=== PATIENT | male | born 1945 | race Caucasian/White ===

== ENCOUNTER 2018-05-29 00:39 | Inpatient (IN) | payer OTHER, MEDICARE ==
--- OUTSIDE RECORDS SUMMARY | 2018-05-29 00:40 | XMS REPORT | Clinical Summary ---
:1945 Author Organization [facility] [employer] Address [address] [place] [address] Care Team Providers Name Role Phone Asked, No Pcp Primary Care Provider Unavailable Allergies No Known Allergies Current Medications Prescription Sig. Disp. Refills Start Date End Date Status lisinopril Take 40 mg by Active (PRINIVIL,ZESTRIL) mouth daily. 40 MG tablet omeprazole Take 40 mg by Active (PriLOSEC) 40 MG mouth daily. capsule diltiazem TAKE 1 TABLET Active (CardIZEM) 120 MG ONCE DAILY tablet ELIQUIS 5 mg tablet Take 5 mg by 1 09/03/2016 Active mouth 2 (two) times a day. digOXIN (LANOXIN) Take 1 tablet 90 tablet 3 01/17/2018 Active 125 mcg tablet (125 mcg total) by mouth daily. digOXIN (LANOXIN) digoxin 125 07/05/2017 Discontinued 125 mcg tablet mcg tablet digOXIN (LANOXIN) Take 1 tablet 90 tablet 3 07/05/2017 07/09/2017 Discontinued 125 mcg tablet (125 mcg total) by mouth daily. digOXIN (LANOXIN) Take 1 tablet 90 tablet 3 07/09/2017 07/15/2017 Discontinued 125 mcg tablet (125 mcg total) by mouth daily. digOXIN (LANOXIN) Take 1 tablet 90 tablet 0 07/15/2017 01/13/2018 Discontinued 125 mcg tablet (125 mcg total) by mouth daily. digOXIN (LANOXIN) Take 1 tablet 30 tablet 0 01/13/2018 01/14/2018 Discontinued 125 mcg tablet (125 mcg total) by mouth daily. digOXIN (LANOXIN) Take 1 tablet 90 tablet 3 01/14/2018 01/14/2018 Discontinued 125 mcg tablet (125 mcg total) by mouth daily. digOXIN (LANOXIN) Take 1 tablet 90 tablet 3 01/14/2018 01/17/2018 Discontinued 125 mcg tablet (125 mcg total) by mouth daily. Active Problems Problem Noted Date Bilateral carotid artery stenosis 11/01/2016 AF (atrial fibrillation) 06/05/2016 Encounters Date Type Specialty Care Team Description 01/17/2018 Refill Cardiology Cathie Donaldson MA Med Refill 01/14/2018 Refill Cardiology Renetta Tian MA Med Refill 01/14/2018 Refill Cardiology Renetta Tian MA Med Refill 01/13/2018 Orders Only Cardiology Finn Moy MA 07/15/2017 Refill Cardiology Finn Moy MA Med Refill 07/09/2017 Refill Cardiology Renetta Tian MA Med Refill 07/05/2017 Refill Cardiology Renetta Tian MA Med Refill after 05/28/2017 Social History Tobacco Use Types Packs/Day Years Used Date Never Smoker Alcohol Use Drinks/Week oz/Week Comments No Sex Assigned at Date Recorded Not on file Last Filed Vital Signs Not on file Plan of Treatment Health Maintenance Due Date Last Done Comments COLON CANCER SCREENING 1995 SHINGRIX VACCINE (#1) 1995 ZOSTER VACCINE 2005 PNEUMOCOCCAL POLYSACCHARIDE VACCINE AGE 65 AND OVER 2010 PNEUMOCOCCAL-13 2010 INFLUENZA VACCINE 04/16/2018 Results Not on fileafter 05/28/2017 Insurance Payer Benefit Plan / Group Subscriber ID Type Phone Address [facility] AAR SUPPLEMENT xxxxxxxxxxx Commercial MEDICARE MEDICARE PART A AND B xxxxxxxxxx Medicare [place], [place]
[2018-05-29] MEDS ORDERED: ASPIRIN 81 MG CHEWABLE TABLET ONE ×2 (01:23→09:17)
[2018-05-29 01:26] LABS: Absolute Lymphocytes (CBC) 1.9 K/uL (0.7-4.9); Absolute Monocytes 1.1 K/uL (0.1-1.3); Absolute Neutrophil 8.4 K/uL (1.8-8.0); Basophils % 0.6 % (0-1.3); Eosinophils % 1.7 % (0-4.4); Hematocrit 34.1 % (39.6-49.0); Lymphocytes % 16.5 % (15.3-44.8); MCH 30.2 pg (27.0-35.0); MPV 8.5 fL (7.6-11.3); Monocytes % 9.1 % (3.3-12.3); RBC Red Blood Cell Count 3.84 M/uL (4.33-5.43)
[2018-05-29 01:30] LABS: Protime INR 1.52
[2018-05-29 01:47] LABS: ALT/SGPT 17 U/L (12-78); AST/SGOT 15 U/L (15-37); Albumin 3.7 g/dL (3.4-5.0); Alkaline Phosphatase 77 U/L (45-117); BUN Blood Urea Nitrogen 29 mg/dL (7-18); Bicarbonate 28 mmol/L (21-32); Bilirubin Direct 0.1 mg/dL (0-0.2); Bilirubin Total 0.3 mg/dL (0.2-1.0); CKMB Creatine Kinase MB < 1.0 ng/mL (0.3-3.6); Creatine Phosphokinase 45 U/L (39-308); Glucose Level 115 mg/dL (74-106); Magnesium 2.2 mg/dL (1.8-2.4); NT PRO-BNP 2243 pg/mL (<125); Potassium 5.4 mmol/L (3.5-5.1); Protein, Total 8.2 g/dL (6.4-8.2); Sodium Level 132 mmol/L (136-145); Troponin (Emerg Dept Use Only) 0.02 ng/mL (0.0-0.045)
[2018-05-29] MEDS ORDERED: SOD POLYSTYREN SUL 15 GM/60 ML UCUP ONE (02:11)
--- NOTE | 2018-05-29 03:17 | EDPHYS ---
Physician Documentation [facility] Name: Driss Dao Age: 73 yrs Sex: Male : 1945 Arrival Date: 05/29/2018 Time: 00:45 Bed 12 Private MD: ED Physician David Garland HPI: 05/29 02:08 This 73 yrs old Male presents to ER via EMS with complaints of chest pain. jr8 02:08 The patient or guardian reports chest pain that is located primarily in the substernal jr8 area. Onset: acutely, today. The pain radiates to the left arm, back. Associated signs and symptoms: The patient has no apparent associated signs or symptoms. The chest pain is described as a pressure. Duration: The patient or guardian reports multiple episodes. Modifying factors: The symptoms are alleviated by nothing. the symptoms are aggravated by nothing. Severity of pain: At its worst the pain was moderate in the emergency department the pain has resolved. The patient has not experienced similar symptoms in the past. The patient has not recently seen a physician. Has had intermittent chest pain for the past two days. Worse tonight. Woke him up in his sleep. Episodes last about 10 min a piece when they do occur . Historical: - Allergies: 00:52 No Known Allergies; jd3 - Home Meds: 00:52 lisinopril 40 mg Oral tab 1 tab once daily [Active]; omeprazole 40 mg Oral cpDR 1 cap jd3 once daily [Active]; Eliquis 2.5 mg Oral tab 1 tab 2 times per day [Active]; Aspirin Oral [Active]; 02:16 digoxin 125 mcg oral tab 1 tab once daily [Active]; diltiazem HCl 120 mg Oral cpER 1 jd3 cap once daily [Active]; - PMHx: 00:52 Atrial Fib; CVA - with right sided weakness; Hypertension; GI Bleed; jd3 - PSHx: 00:52 Heart stents; back sx; jd3 - Immunization history:: Adult Immunizations not up to date. - Social history:: Smoking status: Patient/guardian denies using tobacco, the patient reports quitting approximately 3 years ago. - Ebola Screening: : Patient negative for fever greater than or equal to 101.5 degrees Fahrenheit, and additional compatible Ebola Virus Disease symptoms. ROS: 02:08 Eyes: Negative for injury, pain, redness, and discharge, ENT: Negative for injury, jr8 pain, and discharge, Neck: Negative for injury, pain, and swelling, Respiratory: Negative for shortness of breath, cough, wheezing, and pleuritic chest pain, Abdomen/GI: Negative for abdominal pain, nausea, vomiting, diarrhea, and constipation, Back: Negative for injury and pain, MS/Extremity: Negative for injury and deformity, Skin: Negative for injury, rash, and discoloration, Neuro: Negative for headache, weakness, numbness, tingling, and seizure. 02:08 Cardiovascular: Positive for chest pain, Negative for edema, orthopnea, palpitations, paroxysmal nocturnal dyspnea. Exam: 02:08 Eyes: Pupils equal round and reactive to light, extra-ocular motions intact. Lids and jr8 lashes normal. Conjunctiva and sclera are non-icteric and not injected. Cornea within normal limits. Periorbital areas with no swelling, redness, or edema. ENT: Nares patent. No nasal discharge, no septal abnormalities noted. Tympanic membranes are normal and external auditory canals are clear. Oropharynx with no redness, swelling, or masses, exudates, or evidence of obstruction, uvula midline. Mucous membranes moist. Neck: Trachea midline, no thyromegaly or masses palpated, and no cervical lymphadenopathy. Supple, full range of motion without nuchal rigidity, or vertebral point tenderness. No Meningismus. Cardiovascular: Regular rate and rhythm with a normal S1 and S2. No gallops, murmurs, or rubs. Normal PMI, no JVD. No pulse deficits. Respiratory: Lungs have equal breath sounds bilaterally, clear to auscultation and percussion. No rales, rhonchi or wheezes noted. No increased work of breathing, no retractions or nasal flaring. Abdomen/GI: Soft, non-tender, with normal bowel sounds. No distension or tympany. No guarding or rebound. No evidence of tenderness throughout. Back: No spinal tenderness. No costovertebral tenderness. Full range of motion. Skin: Warm, dry with normal turgor. Normal color with no rashes, no lesions, and no evidence of cellulitis. MS/ Extremity: Pulses equal, no cyanosis. Neurovascular intact. Full, normal range of motion. Neuro: Awake and alert, GCS 15, oriented to person, place, time, and situation. Cranial nerves II-XII grossly intact. Motor strength 5/5 in all extremities. Sensory grossly intact. Cerebellar exam normal. Normal gait. Vital Signs: 00:52 BP 128 / 55; Pulse 45; Resp 18 S; Temp 98.7(O); Pulse Ox 98% on R/A; Weight 79.38 kg jd3 (R); Height 6 ft. 0 in. (182.88 cm) (R); Pain 0/10; 01:42 BP 97 / 56; Pulse 51; Resp 17 S; Pulse Ox 99% on R/A; Pain 0/10; jd3 02:39 BP 110 / 51; Pulse 60; Resp 17 S; Pulse Ox 100% on R/A; jd3 03:30 BP 103 / 50; Pulse 59; Resp 17; Pulse Ox 100% on R/A; lp1 00:52 Body Mass Index 23.73 (79.38 kg, 182.88 cm) jd3 MDM: 00:51 Patient medically screened. jr8 02:08 The patient was given aspirin in the Emergency Department. Data reviewed: vital signs, jr8 nurses notes, lab test result(s), EKG, radiologic studies, CT scan, plain films, and as a result, I will admit patient. Data interpreted: Pulse oximetry: on room air is 99 %. Interpretation: normal. Counseling: I had a detailed discussion with the patient and/or guardian regarding: the historical points, exam findings, and any diagnostic results supporting the discharge/admit diagnosis, lab results, radiology results, the need for further work-up and treatment in the hospital. 03:41 ED course: Called and left message for Dr. Escobar about admission. No answer at that jr8 time. Awaiting call back . 05/29 00:59 Order name: Basic Metabolic Panel; Complete Time: : 05/29 00:59 Order name: CBC with Diff; Complete Time: : 05/29 00:59 Order name: Ckmb; Complete Time: : 05/29 00:59 Order name: CPK; Complete Time: : 05/29 00:59 Order name: LFT's; Complete Time: : [facility] 05/29 00:59 Order name: Magnesium; Complete Time: : 05/29 00:59 Order name: NT PRO-BNP; Complete Time: 01:55 [facility] 05/29 00:59 Order name: PT-INR; Complete Time: 01:55 [facility] 05/29 00:59 Order name: Ptt, Activated; Complete Time: 01:55 [facility] 05/29 00:59 Order name: Troponin (emerg Dept Use Only); Complete Time: 01:55 [facility] 05/29 01:56 Order name: Digoxin rust 05/29 01:56 Order name: Digoxin Level; Complete Time: 03:16 EDMS 05/29 03:27 Order name: Urine Dipstick--Ancillary (enter results); Complete Time: 15:25 [place] 05/29 05:41 Order name: Troponin I; Complete Time: 15:25 [facility] 05/29 00:59 Order name: XRAY Chest (1 view); Complete Time: 15:25 [facility] 05/29 00:59 Order name: EKG; Complete Time: 01:00 [facility] 05/29 00:59 Order name: Cardiac monitoring; Complete Time: 01:00 [facility] 05/29 00:59 Order name: EKG - Nurse/Tech; Complete Time: 00:59 [facility] 05/29 00:59 Order name: IV Saline Lock; Complete Time: 01:10 [facility] 05/29 00:59 Order name: Labs collected and sent; Complete Time: 01:10 [facility] 05/29 00:59 Order name: O2 Per Protocol; Complete Time: 01:00 [facility] 05/29 00:59 Order name: O2 Sat Monitoring; Complete Time: 01:00 [facility] 05/29 00:59 Order name: Urine Dipstick-Ancillary (obtain specimen); Complete Time: 03:24 [facility] 05/29 01:57 Order name: CT Chest W/ Con; Complete Time: 15:25 rust 05/29 11:06 Order name: Troponin I; Complete Time: 15:25 EDMS Administered Medications: 01:19 Drug: Aspirin Chewable Tablet 243 mg Route: PO; jd3 02:03 Follow up: Response: No adverse reaction jd3 02:10 Drug: Kayexalate 30 grams Route: PO; jd3 03:23 Follow up: Response: No adverse reaction lp1 Disposition: 05/29/18 03:16 Hospitalization ordered by Blade Escobar for Inpatient Admission. Preliminary diagnosis are Chest pain, unspecified, Pulmonary Mass. - Bed requested for [facility] ER HOLD. - Status is Inpatient Admission. eb - Condition is Stable. - Problem is new. - Symptoms have improved. UTI on Admission? No Addendum: 05/30/2018 13:41 Co-signature as Attending Physician, David Garland MD I agree with the assessment and c tesfaye plan of care. Signatures: Dispatcher [employer] EDMS Rachel Denny RN RN mw Anderson, Corey, MD MD cha Pena, Laura RN RN lp1 Indio Box PA PA jr8 Everett Orlando RN RN jd3 Jeniffer Funk Corrections: (The following items were deleted from the chart) 05/29 02:16 00:52 Home Meds: digoxin 250 mcg Oral tab 1 tab once daily; jd3 jd3 02:16 00:52 Home Meds: Cardizem Oral; jd3 jd3 03:56 03:16 Hospitalization Ordered by Blade Escobar MD for Inpatient Admission. Preliminary diagnosis is Chest pain, unspecified. Bed requested for Telemetry/MedSurg (Inpatient). Status is Inpatient Admission. Condition is Stable. Problem is new. Symptoms have improved. UTI on Admission? No. jr8 03:59 03:56 05/29/2018 03:16 Hospitalization Ordered by Blade Escobar MD for Inpatient jr8 Admission. Preliminary diagnosis is Chest pain, unspecified. Bed requested for [facility] ER HOLD. Status is Inpatient Admission. Condition is Stable. Problem is new. Symptoms have improved. UTI on Admission? No. mw 11:49 03:59 05/29/2018 03:16 Hospitalization Ordered by Blade Escobar MD for Inpatient eb Admission. Preliminary diagnosis is Chest pain, unspecified; Pulmonary Mass. Bed requested for [facility] ER HOLD. Status is Inpatient Admission. Condition is Stable. Problem is new. Symptoms have improved. UTI on Admission? No. jr8
--- NOTE | 2018-05-29 03:17 | ER ---
Nurse's Notes [facility] Name: Driss Dao Age: 73 yrs Sex: Male : 1945 Arrival Date: 05/29/2018 Time: 00:45 Bed 12 Private MD: Diagnosis: Chest pain, unspecified;Pulmonary Mass Presentation: 05/29 00:45 Presenting complaint: EMS states: "He was having chest pain that radiated to his back jd3 and left shoulder, around 1930 today. He also said that he was having some numbness and tingling in his figures. all symptoms resolved in route.". Transition of care: patient was not received from another setting of care. Onset of symptoms was May 29, 2018. Risk Assessment: Do you want to hurt yourself or someone else? Patient reports no desire to harm self or others. Initial Sepsis Screen: Does the patient meet any 2 criteria? No. Patient's initial sepsis screen is negative. Does the patient have a suspected source of infection? No. Patient's initial sepsis screen is negative. Care prior to arrival: None. 00:45 Method Of Arrival: EMS: [facility] jd3 00:45 Acuity: ANGEL 2 jd3 Historical: - Allergies: 00:52 No Known Allergies; jd3 - Home Meds: 00:52 lisinopril 40 mg Oral tab 1 tab once daily [Active]; omeprazole 40 mg Oral cpDR 1 cap jd3 once daily [Active]; Eliquis 2.5 mg Oral tab 1 tab 2 times per day [Active]; Aspirin Oral [Active]; 02:16 digoxin 125 mcg oral tab 1 tab once daily [Active]; diltiazem HCl 120 mg Oral cpER 1 jd3 cap once daily [Active]; - PMHx: 00:52 Atrial Fib; CVA - with right sided weakness; Hypertension; GI Bleed; jd3 - PSHx: 00:52 Heart stents; back sx; jd3 - Immunization history:: Adult Immunizations not up to date. - Social history:: Smoking status: Patient/guardian denies using tobacco, the patient reports quitting approximately 3 years ago. - Ebola Screening: : Patient negative for fever greater than or equal to 101.5 degrees Fahrenheit, and additional compatible Ebola Virus Disease symptoms. Screenin:54 Abuse screen: Denies threats or abuse. Nutritional screening: No deficits noted. jd3 Tuberculosis screening: No symptoms or risk factors identified. Fall Risk Ambulatory Aid- Crutches/Cane/Walker (15 pts). Gait- Weak (10 pts.). Mental Status- Oriented to own ability (0 pts). Total Selby Fall Scale indicates Low Risk Score (25-44 pts). Fall prevention measures have been instituted. Side Rails Up X 2 Placed close to Nursing Station Frequent Obs/Assesments occuring Family Present and informed to notify staff if they need to leave bedside. Assessment: 00:53 General: Appears comfortable, Behavior is calm, cooperative, appropriate for age. Pain: jd3 Denies pain. Neuro: Level of Consciousness is awake, alert, obeys commands, Oriented to person, place, time, situation. Cardiovascular: Heart tones S1 S2 present Capillary refill < 3 seconds Patient's skin is warm and dry. Rhythm is atrial fibrillation. Respiratory: Airway is patent Respiratory effort is even, unlabored, Respiratory pattern is regular, symmetrical, Breath sounds are clear bilaterally. GI: No signs and/or symptoms were reported involving the gastrointestinal system. : No signs and/or symptoms were reported regarding the genitourinary system. EENT: No signs and/or symptoms were reported regarding the EENT system. Derm: Skin is intact, Skin is dry, Skin is normal, Skin temperature is warm. Musculoskeletal: Circulation, motion, and sensation intact. Range of motion: intact in all extremities. 01:43 Reassessment: Patient appears in no apparent distress at this time. No changes from jd3 previously documented assessment. Patient and/or family updated on plan of care and expected duration. Pain level reassessed. Patient is alert, oriented x 3, equal unlabored respirations, skin warm/dry/pink. 02:38 Reassessment: Patient appears in no apparent distress at this time. No changes from jd3 previously documented assessment. Patient and/or family updated on plan of care and expected duration. Pain level reassessed. Patient is alert, oriented x 3, equal unlabored respirations, skin warm/dry/pink. 03:45 Reassessment: Patient is alert, oriented x 3, equal unlabored respirations, skin lp1 warm/dry/pink. Patient aware of pending admission. Vital Signs: 00:52 BP 128 / 55; Pulse 45; Resp 18 S; Temp 98.7(O); Pulse Ox 98% on R/A; Weight 79.38 kg jd3 (R); Height 6 ft. 0 in. (182.88 cm) (R); Pain 0/10; 01:42 BP 97 / 56; Pulse 51; Resp 17 S; Pulse Ox 99% on R/A; Pain 0/10; jd3 02:39 BP 110 / 51; Pulse 60; Resp 17 S; Pulse Ox 100% on R/A; jd3 03:30 BP 103 / 50; Pulse 59; Resp 17; Pulse Ox 100% on R/A; lp1 00:52 Body Mass Index 23.73 (79.38 kg, 182.88 cm) jd3 ED Course: 00:45 Patient arrived in ED. jd3 00:49 Triage completed. jd3 00:51 Indio Box PA is PHCP. jr8 00:51 David Garland MD is Attending Physician. jr8 00:53 Arm band placed on. jd3 00:55 Patient has correct armband on for positive identification. Placed in gown. Bed in low jd3 position. Call light in reach. Side rails up X2. Adult w/ patient. monitor car operator on. Pulse ox on. NIBP on. 00:59 Everett Orlando, RN is Primary Nurse. jd3 01:10 Inserted saline lock: 20 gauge in left antecubital area, using aseptic technique. Blood jd3 collected. 01:55 XRAY Chest (1 view) In Process Unspecified. EDMS 02:53 CT Chest W/ Con In Process Unspecified. EDMS 03:16 Blade Escobar MD is Hospitalizing Provider. jr8 03:24 No provider procedures requiring assistance completed. Patient admitted, IV remains in lp1 place. Administered Medications: 01:19 Drug: Aspirin Chewable Tablet 243 mg Route: PO; jd3 02:03 Follow up: Response: No adverse reaction jd3 02:10 Drug: Kayexalate 30 grams Route: PO; jd3 03:23 Follow up: Response: No adverse reaction lp1 Outcome: 03:16 Decision to Hospitalize by Provider. jr8 03:24 Condition: stable lp1 03:24 Instructed on the need for admit. 04:28 Admitted to ER Hold. Please see [facility] for further documentation. lp1 11:49 Patient left the ED. eb Signatures: Dispatcher [employer] EDTammy Hare RN RN lp1 Indio Box PA PA jr8 Everett Orlando RN RN jd3 Jeniffer Funk Corrections: (The following items were deleted from the chart) 02:16 00:52 Home Meds: digoxin 250 mcg Oral tab 1 tab once daily; jd3 jd3 02:16 00:52 Home Meds: Cardizem Oral; jd3 jd3
[2018-05-29] MEDS ORDERED: MORPHINE 4 MG/ML SYR IV PRN (04:24)
[2018-05-29] MEDS ORDERED: ACETAMINOPHEN 500 MG TAB PO PRN (04:24)
[2018-05-29] MEDS ORDERED: ONDANSETRON 4 MG/2 ML VIAL IV PRN (04:24)
[2018-05-29 04:39] VITALS: BMI 23.7
[2018-05-29 04:45] LABS: Urine Blood NEGATIVE (NEG); Urine Glucose NEGATIVE (NEG); Urine Protein NEGATIVE (NEG)
[2018-05-29] MEDS ORDERED: Levofloxacin500mg IV 500 MG/100 ML BAG IV ONE (05:58)
[2018-05-29] MEDS ORDERED: Levofloxacin500mg IV 500 MG/100 ML BAG IV SCH (06:00)
[2018-05-29 06:29] VITALS: O2SAT 99
[2018-05-29 07:55] VITALS: BP 121/51; TEMP 98
[2018-05-29] MEDS ORDERED: PNEUMOCOCCAL VACCINE 0.5 ML IMVAC ONE (08:00)
--- NOTE | 2018-05-29 08:21 | RAD REPORT ---
EXAM DESCRIPTION: CT - Thorax W/ Con - 05/29/2018 5:27 am CLINICAL HISTORY: Lung mass/abnormal radiologic exam COMPARISON: 05/29/2018 chest x-ray TECHNIQUE: Computed axial tomography of the chest was obtained. 100 cc Isovue 300 was administered i ntravenously. Preliminary report was generated by virtual radiologic and reviewed prior to this dicta tion All CT scans are performed using dose optimization technique as appropriate and may include automated exposure control or mA/KV adjustment according to patient size. FINDINGS: A 4.9 centimeter mass is present within the right middle lobe which is spiculated. A 16 mi llimeter spiculated opacity is present within the right upper lobe. A 1 centimeter lingular opacity i s noted. Centrilobular emphysema is present. Mild right hilar lymphadenopathy is seen. A middle mediastinal lymph node is borderline enlarged A pericardial effusion is not seen A pleural effusion is not present. IMPRESSION: 4.9 centimeter right middle lobe mass likely representing neoplasm 16 millimeters spiculated right upper lobe opacity could represent neoplasm, scarring or inflammation . 1 centimeter lingular opacity probably representing scarring or inflammation. Neoplasm although possi ble is considered less likely Old compression deformity involves the L2 vertebral body Mild right hilar lymphadenopathy
--- NOTE | 2018-05-29 08:56 | RAD REPORT ---
EXAM DESCRIPTION: Aminata Single View05/29/2018 1:55 am CLINICAL HISTORY: Chest pain COMPARISON: 2016 FINDINGS: A right middle lobe mass is present. The left lung appears clear of acute infiltrate. Lungs are hyperaerated. The heart is normal size IMPRESSION: Right middle lobe mass probably represents neoplasm
[2018-05-29] MEDS ORDERED: ASPIRIN EC 81 MG TAB PO SCH (09:00)
--- NOTE | 2018-05-29 10:43 | P.CNS ---
Date of Consult: 05/29/18 Patient comes to the ER with complaint of back pain to his shoulder blades. Had a CT scan done which shows a mass in the right middle lobe of the lung. He has not been having any coughing or fevers. He is asking to go home. P/E FLIGHT OPERATIONS SPECIALIST AAOX3 HEENT PERRLA, EOM, -ve LAD CVS s1,s2, RRR RS LCTA A/P 1. Lung mass. Have discussed with Dr. Alejandro. Needs an outpatient work up Will discharge him and have him follow up with Dr. Bruce next week. Have sent Dr. Bruce the patinet's detail. 2.atrial fib 3. HTN 4. Hyperlipidemia Will work up his lung mass and follow up as an outpatient. He would like to see Dr. Vilchis first however the mass is most likely the cause of his pain. Have spent 30min with the patient.
--- NOTE | 2018-05-29 11:05 | EKG ---
Test Date: 2018-05-29 Test Time: 00:44:28 Motor Vehicles Inspector: PAMELA MEASUREMENT RESULTS: Intervals: Rate: 59 AK: QRSD: 86 QT: 396 QTc: 392 [place]: P: AK: QRS: 59 T: 83 INTERPRETIVE STATEMENTS: Atrial fibrillation with slow ventricular response ST & T wave abnormality, consider anterior ischemia Abnormal ECG Compared to ECG 06/04/2016 15:35:56 No significant changes Electronically Signed On 05-29-18 11:03:40 CDT by Bertin Manuel
== END 2018-05-29 11:37 | disposition home or self-care (01) | DRG 204 ==
LOC: ER 00:39 → ERHOLD 03:23
PROVIDERS: ADMIT Internal Medicine; ATTEND Internal Medicine
DX: R91.8 Other nonspecific abnormal finding of lung field (principal); I69.951 Hemiplegia and hemiparesis following unspecified cerebrovascular disease affecting right dominant side; I10 Essential (primary) hypertension; E78.5 Hyperlipidemia, unspecified; I48.91 Unspecified atrial fibrillation
CPT/HCPCS: 36415; 71045; 71260; 80048; 80076; 80162; 81003; 82550; 82553; 83735; 83880; 84484; 85025; 85610; 85730; 93005; 99285; Q9967

== ENCOUNTER 2018-06-11 06:30 | Day surgery (SDC) | payer OTHER, MEDICARE ==
--- OUTSIDE RECORDS SUMMARY | 2018-06-11 06:39 | XMS REPORT | Clinical Summary ---
:1945 Author Organization [facility] Address [address] [place] [address] Care Team Providers Name Role Phone Asked, [...] Cardiology Renetta Tian MA Med Refill after 06/10/2017 Social History Tobacco Use Types Packs/Day Years [...] INFLUENZA VACCINE 04/16/2018 Results Not on fileafter 06/10/2017 Insurance Payer Benefit Plan / Group Subscriber ID Type Phone Address [facility] AAR SUPPLEMENT xxxxxxxxxxx Commercial MEDICARE MEDICARE PART A AND B xxxxxxxxxx Medicare [place], [place]
[2018-06-11] MEDS ORDERED: Ringers Lactate 1,000 ML IV ONE (07:12)
[2018-06-11] MEDS ORDERED: Phenylephrine HCl 10 MG/ML 1 ML VIAL ONE (07:28)
[2018-06-11] MEDS ORDERED: GLYCOPYRROLATE 0.2 MG/ML SYR ONE (07:28)
[2018-06-11] MEDS ORDERED: LIDOCAINE 1% MPF 30 ML VIAL ONE (07:28)
[2018-06-11] MEDS ORDERED: LIDOCAINE VISCOUS 2% SOLN 15 ML UDC ONE (07:28)
[2018-06-11] MEDS: LIDOCAINE 4% TOP SOLUTION ONE ×2 (07:33→08:00)
[2018-06-11] MEDS ORDERED: PROPOFOL 200 MG/20 ML VIAL IV ONE (08:06)
[2018-06-11] MEDS ORDERED: MIDAZOLAM HCL 2 MG/2 ML INJ ONE (08:06)
[2018-06-11] MEDS ORDERED: FENTANYL CITR 100 MCG/2 ML ONE (08:07)
--- NOTE | 2018-06-11 08:38 | P.OP ---
Date of Service: 06/11/18 (Bronchoscopy with right middle lobe IOP see BAL and wire brushing 's) Findings and Operative Technique Patient is 73 years of age evaluated by me for a right middle lobe lung mass former smoker hence the reason for bronchoscopy Narrative report after obtaining informed consent from the patient he was premedicated by anesthesia Findings normal vocal cords normal trachea normal right and left-sided bronchial anatomy no endobronchial lesions visible Multiple biopsies were performed from the right middle lobe as stated above patient tolerated the procedure very well did not experience any hemodynamic instability
--- NOTE | 2018-06-11 08:49 | RAD REPORT ---
EXAM DESCRIPTION: RAD - FLUORO-GUIDE FOR BRONCH [id number] - 06/11/2018 8:43 am CLINICAL HISTORY: MASS IN RIGHT LUNG COMPARISON: Thorax W/ Con dated 05/29/2018 FINDINGS: Fluoroscopic imaging is submitted from a right lung bronchoscopy procedure. Details of the procedure not available. Four images were obtained. Total fluoro time 0.2 minutes.
--- NOTE | 2018-06-11 09:58 | RAD REPORT ---
EXAM DESCRIPTION: RAD - Chest Single View - 06/11/2018 9:48 am CLINICAL HISTORY: PNEUMOTHORAX Chest pain. COMPARISON: Chest Single View dated 05/29/2018; Chest Single View dated 06/04/2016; Chest Single View dated 04/30/2016; Chest Single View dated 04/29/2016 FINDINGS: Portable technique limits examination quality. Right inferior pulmonary mass lesion is again noted. The patient is status post bronchoscopy with no evidence of postprocedure pneumothorax. The heart is normal in size. No displaced fractures. IMPRESSION: No evidence of postprocedure pneumothorax.
[2018-06-11 15:22] VITALS: TEMP 96.8
[2018-06-11 15:28] VITALS: BP 110/50; O2SAT 98
== END 2018-06-11 10:30 | disposition home or self-care (01) ==
LOC: OR 06:30
PROVIDERS: ATTEND Internal Medicine Sleep Medicine
PROC: 0B9D8ZX Drainage of Right Middle Lung Lobe, Via Natural or Artificial Opening Endoscopic, Diagnostic (ICD-10-PCS; 2018-06-11)
PROC: 0BB58ZX Excision of Right Middle Lobe Bronchus, Via Natural or Artificial Opening Endoscopic, Diagnostic (ICD-10-PCS; principal; 2018-06-11 08:00)
DX: D02.21 Carcinoma in situ of right bronchus and lung (principal); I48.2 Chronic atrial fibrillation; Z87.891 Personal history of nicotine dependence; I10 Essential (primary) hypertension; Z79.82 Long term (current) use of aspirin
CPT/HCPCS: 31624; 31625; 71045; 76000; 87015; 87070; 87077; 87102; 87116; 87186; 87206; 88108 ×2; 88305 ×2; J2250; J2370; J3010

== ENCOUNTER 2018-06-14 16:16 | Inpatient (IN) | payer OTHER, MEDICARE ==
--- OUTSIDE RECORDS SUMMARY | 2018-06-14 16:18 | XMS REPORT | Clinical Summary ---
:1945 Author Organization [facility] Address [address] [place] [address] Care Team Providers Name Role Phone Asked, [...] carotid artery stenosis 11/01/2016 AF (atrial fibrillation) (HCC) 06/05/2016 Encounters Date Type Specialty Care Team [...] Cardiology Renetta Tian MA Med Refill after 06/13/2017 Social History Tobacco Use Types Packs/Day Years [...] INFLUENZA VACCINE 04/16/2018 Results Not on fileafter 06/13/2017 Insurance Payer Benefit Plan / Group Subscriber ID Type Phone Address [facility] AAR SUPPLEMENT xxxxxxxxxxx Commercial MEDICARE MEDICARE PART A AND B xxxxxxxxxx Medicare [place], [place]
[2018-06-14] MEDS ORDERED: NA CHLORIDE 0.9% 1,000 ML ONE (17:16)
[2018-06-14 17:18] LABS: Protime INR 2.06
--- NOTE | 2018-06-14 17:21 | RAD REPORT ---
EXAM DESCRIPTION: RAD - Chest Single View - 06/14/2018 5:07 pm CLINICAL HISTORY: Chest pain COMPARISON: June 11 chest film, May 29 CT chest TECHNIQUE: AP portable chest image was obtained 1654 hours . FINDINGS: Interstitial markings of the lower left lung field are stable. Large mass density in the l ower right lung field has slightly larger than prior study. Patient may have a superimposed or second ruben pneumonia on top of a suspected malignant mass. Heart and vasculature are normal. No measurable pleural effusion and no pneumothorax. No gross bony abnormality seen. No acute aortic findings suspected. IMPRESSION: Right lower lung field mass density measures larger than the prior imaging. Findings are concerning for secondary right lung base pneumonia superimposed on the known lung mass.
--- NOTE | 2018-06-14 17:23 | RAD REPORT ---
EXAM DESCRIPTION: CT - Head Brain Wo Cont - 06/14/2018 5:14 pm CLINICAL HISTORY: Weakness, CVA, lung mass COMPARISON: None. TECHNIQUE: Axial 5 mm thick images of the head were obtained without IV contrast. All CT scans are performed using dose optimization technique as appropriate and may include automated exposure control or mA/KV adjustment according to patient size. FINDINGS: No intracranial hemorrhage, mass, edema or shift of mid-line structures. No acute infarcti on changes seen. Atrophy changes are present. Scattered chronic ischemic changes are present mild to moderate in degree. Old CVA changes are present in the deep periventricular white matter left frontal lobe. No noncontrast finding to suspect intracranial metastatic disease. Ventricles are normal. Mastoid air cells and visualized portions of the paranasal sinuses are clear. No acute bony findings. IMPRESSION: Atrophy, chronic ischemic change and old left frontal white matter infarct. No hemorrhage or acute intracranial finding. No evidence for metastatic disease on noncontrast imagin g.
[2018-06-14 17:26] LABS: Albumin 3.2 g/dL (3.4-5.0); Bilirubin Direct 0.4 mg/dL (0-0.2); Bilirubin Total 0.9 mg/dL (0.2-1.0); Potassium 4.5 mmol/L (3.5-5.1); Protein, Total 7.6 g/dL (6.4-8.2); Troponin (Emerg Dept Use Only) 0.14 ng/mL (0.0-0.045)
[2018-06-14] MEDS ORDERED: ASPIRIN 81 MG CHEWABLE TABLET ONE (17:37)
[2018-06-14 17:40] LABS: Absolute Lymphocytes (CBC) 1.1 K/uL (0.7-4.9); Absolute Monocytes 2.6 K/uL (0.1-1.3); Absolute Neutrophil 20.3 K/uL (1.8-8.0); Basophils % 0.5 % (0-1.3); Hematocrit 32.5 % (39.6-49.0); Lymphocytes % 4.6 % (15.3-44.8); MCH 29.9 pg (27.0-35.0); MCV 88.6 fL (80-100); MPV 8.7 fL (7.6-11.3); Monocytes % 10.8 % (3.3-12.3); RBC Red Blood Cell Count 3.67 M/uL (4.33-5.43)
[2018-06-14] MEDS ORDERED: VANCOMYCIN 1 GM/250 ML BAG ONE (17:57)
--- NOTE | 2018-06-14 17:57 | EDPHYS ---
Physician Documentation [facility] Name: Driss Dao Age: 73 yrs Sex: Male : 1945 Arrival Date: 06/14/2018 Time: 16:20 Bed 5 Private MD: ED Physician Vijay De La Cruz HPI: 06/14 16:40 This 73 yrs old Male presents to ER via EMS with complaints of General cp Weakness. 16:40 Patient's baseline: Neuro: alert and fully oriented, Motor: right-sided weakness, cp Ambulation: walks with assist only, uses walker, Speech: normal. 16:40 The patient's problem is reported as weakness, that is generalized. Onset: The cp symptoms/episode began/occurred yesterday. Duration: The episode is continuous. Associated signs and symptoms: Pertinent positives: chest pain, cough, fever. Historical: - Allergies: 16:25 No Known Allergies; hj - Home Meds: 16:25 lisinopril 40 mg Oral tab 1 tab once daily [Active]; diltiazem HCl 120 mg Oral cpER 1 hj cap once daily [Active]; omeprazole 40 mg Oral cpDR 1 cap once daily [Active]; Aspirin Oral [Active]; digoxin 125 mcg Oral tab 1 tab once daily [Active]; Eliquis 2.5 mg Oral tab 1 tab 2 times per day [Active]; - PMHx: 16:25 Atrial Fib; CVA - with right sided weakness; GI Bleed; Hypertension; hj - PSHx: 16:25 Heart stents; back sx; hj - Immunization history:: Adult Immunizations up to date. - Social history:: Smoking status: Patient/guardian denies using tobacco, Patient/guardian denies using alcohol. - Ebola Screening: : Patient negative for fever greater than or equal to 101.5 degrees Fahrenheit, and additional compatible Ebola Virus Disease symptoms Patient denies exposure to infectious person Patient denies travel to an Ebola-affected area in the 21 days before illness onset. ROS: 16:45 Constitutional: Positive for fever, poor PO intake, Negative for body aches, chills. cp 16:45 Eyes: Negative for injury, pain, redness, and discharge. cp 16:45 ENT: Negative for drainage from ear(s), ear pain, sore throat, difficulty swallowing, difficulty handling secretions. 16:45 Cardiovascular: Positive for chest pain, of the right anterior chest, Negative for edema, palpitations. 16:45 Respiratory: Positive for cough, Negative for wheezing. 16:45 Abdomen/GI: Negative for abdominal pain, nausea, vomiting, and diarrhea, constipation, black/tarry stool, rectal bleeding. 16:45 Back: Negative for pain at rest, pain with movement, radiated pain. 16:45 : Negative for urinary symptoms, flank pain. 16:45 Skin: Negative for cellulitis, rash. 16:45 Neuro: Positive for general weakness, Negative for altered mental status, headache, syncope, near syncope. 16:45 All other systems are negative. Exam: 16:50 Constitutional: The patient appears in no acute distress, alert, awake, cp non-diaphoretic, non-toxic, well developed, well nourished. 16:50 Head/Face: Normocephalic, atraumatic. cp 16:50 Eyes: Periorbital structures: appear normal, Pupils: equal, round, and reactive to light and accomodation, Extraocular movements: intact throughout, Conjunctiva: exudate, injected, Sclera: no appreciated abnormality, Lids and lashes: appear normal, bilaterally. 16:50 ENT: External ear(s): are unremarkable, Ear canal(s): are normal, clear, TM's: dullness, bilaterally, Nose: is normal, Mouth: is normal, Posterior pharynx: is normal, airway is patent, no erythema, no exudate. 16:50 Neck: ROM/movement: is normal, is supple, without pain, no range of motions limitations, no meningismus, no nuchal rigidity. 16:50 Chest/axilla: Inspection: normal, Palpation: is normal, no crepitus, no tenderness. 16:50 Cardiovascular: Rate: normal, Rhythm: regular, Edema: is not appreciated, JVD: is not appreciated. 16:50 Respiratory: the patient does not display signs of respiratory distress, Respirations: normal, no use of accessory muscles, no retractions, no splinting, no tachypnea, labored breathing, is not present, Breath sounds: decreased breath sounds, that are mild, are located in both bases, wheezing: is not appreciated. 16:50 Abdomen/GI: Inspection: abdomen appears normal, Bowel sounds: normal, in all quadrants, Palpation: abdomen is soft and non-tender, in all quadrants, rebound tenderness, is not appreciated, voluntary guarding, is not appreciated, involuntary guarding, is not appreciated. 16:50 Back: pain, is absent, CVA tenderness, is absent. 16:50 Skin: cellulitis, is not appreciated, no rash present. 16:50 Neuro: Orientation: to person, place \T\ time. Motor: moves all fours, right side weakness of upper and lower extremity from previous CVA, Sensation: no obvious gross deficits. 17:30 Radiologist reports: no acute findings cp Vital Signs: 16:25 BP 110 / 51; Pulse 104; Resp 18; Temp 99.4(O); Pulse Ox 95% on R/A; Weight 79.38 kg; hj Height 6 ft. 0 in. (182.88 cm); Pain 4/10; 16:36 BP 111 / 51; Pulse 100; Resp 18; Pulse Ox 100% on 2 lpm NC; hj 17:37 BP 106 / 49; Pulse 96; Resp 18; Pulse Ox 100% on 2 lpm NC; hj 18:18 BP 110 / 55; Pulse 93; Resp 18; Pulse Ox 99% on 2 lpm NC; hj 19:23 BP 111 / 46; Pulse 86; Resp 22; Temp 101.6(O); Pulse Ox 100% on 2 lpm NC; Pain 2/10; fc 20:07 BP 119 / 60; Pulse 104; Resp 20; Temp 101.4; Pulse Ox 100% ; Pain 2/10; fc 16:25 Body Mass Index 23.73 (79.38 kg, 182.88 cm) MDM: 16:25 Patient medically screened. cp 17:00 Differential diagnosis: CVA, TIA, drug effects, sepsis, UTI, pneumonia. cp 17:50 Data reviewed: vital signs, nurses notes, lab test result(s), EKG, radiologic studies, cp CT scan, plain films. 17:50 Counseling: I had a detailed discussion with the patient and/or guardian regarding: the cp historical points, exam findings, and any diagnostic results supporting the discharge/admit diagnosis, lab results, radiology results, the need for further work-up and treatment in the hospital. 06/14 16:40 Order name: Basic Metabolic Panel; Complete Time: 17:27 cp 06/14 17:27 Interpretation: Normal except: NA 133; BUN 25; CRE 1.40; GFR 50. 06/14 16:40 Order name: CBC with Diff 06/14 16:40 Order name: LFT's; Complete Time: 17:28 06/14 16:40 Order name: Magnesium; Complete Time: 17:28 06/14 16:40 Order name: NT PRO-BNP; Complete Time: 17:28 06/14 17:28 Interpretation: Abnormal: NT PRO-BNP 6259. 06/14 16:40 Order name: PT-INR; Complete Time: 17:27 06/14 16:40 Order name: Troponin (emerg Dept Use Only); Complete Time: 17:27 06/14 17:27 Interpretation: Abnormal: TROPED 0.14. 06/14 16:40 Order name: XRAY Chest (1 view); Complete Time: 17:27 06/14 16:40 Order name: Blood Culture Adult (2) 06/14 16:40 Order name: Procalcitonin; Complete Time: 17:45 06/14 17:45 Interpretation: Procalcitonin 0.43; Reviewed. 06/14 16:40 Order name: Lactate; Complete Time: 17:45 06/14 17:46 Interpretation: LAC 1.5; Reviewed. 06/14 16:40 Order name: CT Head Brain wo Cont; Complete Time: 17:27 06/14 17:51 Order name: Influenza Screen (a \T\ B) 06/14 20:29 Order name: Procalcitonin EDMD 06/14 16:36 Order name: EKG - Nurse/Tech; Complete Time: 16:36 06/14 16:40 Order name: EKG; Complete Time: 16:41 06/14 16:40 Order name: Cardiac monitoring; Complete Time: 16:42 06/14 16:40 Order name: IV Saline Lock; Complete Time: 16:42 06/14 16:40 Order name: Labs collected and sent; Complete Time: 17:04 06/14 16:40 Order name: O2 Per Protocol; Complete Time: 16:42 06/14 16:40 Order name: O2 Sat Monitoring; Complete Time: 16:42 06/14 17:28 Order name: Swallow Screen; Complete Time: 17:29 cp Administered Medications: 17:07 Drug: NS 0.9% 1000 ml Route: IV; Rate: 75 ml/hr; Site: right forearm; hj 18:03 Follow up: IV Status: Infusion continued upon admission hj 17:28 Drug: Aspirin Chewable Tablet 324 mg Route: PO; hj 17:33 Follow up: Response: No adverse reaction hj 17:28 Drug: NS 0.9% 500 ml Route: IV; Rate: bolus; Site: right forearm; hj 17:33 Follow up: IV Status: Completed infusion; IV Intake: 500ml hj 17:49 Drug: Zosyn 3.375 grams Route: IVPB; Infused Over: 60 mins; Site: right forearm; hj 17:59 Follow up: IV Status: Completed infusion hj 18:12 Drug: vancoMYCIN 1 grams Route: IVPB; Infused Over: 2 hrs; Site: left forearm; hj 18:13 Follow up: IV Status: Infusion continued upon admission hj 19:54 Drug: Tylenol 1000 mg Route: PO; fc 20:10 Follow up: Response: No adverse reaction; No change in condition fc 19:54 Drug: NS 0.9% 1000 ml Route: IV; Rate: 1 bolus; Site: right forearm; fc 20:11 Follow up: IV Status: Infusion continued upon admission Disposition: 06/15 18:23 Co-signature as Attending Physician, Vijay De La Cruz MD. Disposition: 06/14/18 17:56 Hospitalization ordered by Ramsey Stanton for Inpatient Admission. Preliminary diagnosis are Pneumonia due to other specified bacteria, Weakness - Generalized. - Bed requested for Telemetry/MedSurg (Inpatient). - Status is Inpatient Admission. fc - Condition is Stable. - Problem is new. - Symptoms have improved. UTI on Admission? No Signatures: Dispatcher [employer] EDMS Leslie Long RN RN Dominik Hendricks RN RN hj Page, Corey, PA PA Vijay De La Cruz MD MD Jeniffer Funk Corrections: (The following items were deleted from the chart) 06/14 18:11 17:56 Hospitalization Ordered by Ramsey Stanton MD for Inpatient Admission. Preliminary eb diagnosis is Pneumonia due to other specified bacteria; Weakness - Generalized. Bed requested for Telemetry/MedSurg (Inpatient). Status is Inpatient Admission. Condition is Stable. Problem is new. Symptoms have improved. UTI on Admission? No. cp 21:06 16:40 Smith ordered. cp 21:07 18:11 06/14/2018 17:56 Hospitalization Ordered by Ramsey Stanton MD for Inpatient Admission. Preliminary diagnosis is Pneumonia due to other specified bacteria; Weakness - Generalized. Bed requested for Telemetry/MedSurg (Inpatient). Status is Inpatient Admission. Condition is Stable. Problem is new. Symptoms have improved. UTI on Admission? No. eb 06/15 20:28 06/14 16:40 The patient's problem is reported as weakness, that is generalized, cp 06/15 20:06/14 16:40 Onset: The symptoms/episode began/occurred today, [facility] 06/15 20:06/14 16:40 Associated signs and symptoms: Pertinent positives: fever, cp 06/15 20:44 06/13 16:40 ECG was reviewed by the Attending Physician. [facility] 06/15 20:44 06/13 16:40 Rate is 98 beats/min. Rhythm is irregularly irregular. QRS interval is cp normal. QT interval is normal. Interpreted by me. Reviewed by me. cp
--- NOTE | 2018-06-14 17:57 | ER ---
Nurse's Notes [facility] Name: Driss Dao Age: 73 yrs Sex: Male : 1945 Arrival Date: 06/14/2018 Time: 16:20 Bed 5 Private MD: Diagnosis: Pneumonia due to other specified bacteria;Weakness-Generalized Presentation: 06/14 16:20 Presenting complaint: EMS states: called EMS stating that pt is not in his usual hj self since yesterday, at 8 pm last night, complaints of generalized weakness; hx of R side deficit from previous stroke, hx of Afib; pt A\T\Ox3; BGL- 133; BP- 124/97; HR- 104, Afib on 12 Lead; T- 99.1; complaints of R sided chest pain;. Transition of care: patient was not received from another setting of care. Onset of symptoms was June 14, 2018. Risk Assessment: Do you want to hurt yourself or someone else? Patient reports no desire to harm self or others. Initial Sepsis Screen: Does the patient meet any 2 criteria? No. Patient's initial sepsis screen is negative. Does the patient have a suspected source of infection? No. Patient's initial sepsis screen is negative. Care prior to arrival: IV initiated. 20 GA, in the left forearm, Glucose check: 133. 16:20 Method Of Arrival: EMS: [facility] 16:20 Acuity: ANGEL 3 hj Triage Assessment: 16:26 General: Appears in no apparent distress. uncomfortable, Behavior is calm, cooperative, hj appropriate for age. Pain: Complains of pain in chest. Historical: - Allergies: 16:25 No Known Allergies; hj - Home Meds: 16:25 lisinopril 40 mg Oral tab 1 tab once daily [Active]; diltiazem HCl 120 mg Oral cpER 1 hj cap once daily [Active]; omeprazole 40 mg Oral cpDR 1 cap once daily [Active]; Aspirin Oral [Active]; digoxin 125 mcg Oral tab 1 tab once daily [Active]; Eliquis 2.5 mg Oral tab 1 tab 2 times per day [Active]; - PMHx: 16:25 Atrial Fib; CVA - with right sided weakness; GI Bleed; Hypertension; hj - PSHx: 16:25 Heart stents; back sx; hj - Immunization history:: Adult Immunizations up to date. - Social history:: Smoking status: Patient/guardian denies using tobacco, Patient/guardian denies using alcohol. - Ebola Screening: : Patient negative for fever greater than or equal to 101.5 degrees Fahrenheit, and additional compatible Ebola Virus Disease symptoms Patient denies exposure to infectious person Patient denies travel to an Ebola-affected area in the 21 days before illness onset. Screenin:26 Abuse screen: Denies threats or abuse. Denies injuries from another. Nutritional hj screening: No deficits noted. Tuberculosis screening: No symptoms or risk factors identified. Fall Risk Secondary diagnosis (15 points) CVA. 17:29 The patient has not been NPO before screening. The patient is alert, able to follow hj commands. The patient does not exhibit slurred or garbled speech The patient is not exhibiting difficulty speaking. The patient does not exhibit difficulty understanding words. The patient is able to swallow own secretions with no drooling or need for suction. Patient tolerated one teaspoon of water. No drooling, immediate coughing, gurgling, or clearing of the throat was noted. The patient tolerated 90mL of water. No drooling, immediate coughing, gurgling, or clearing of the throat was noted. The patient passed the bedside swallow screening. Oral medications may be given as ordered. Contact Physician for further diet orders. Provider notified of bedside swallow screening results: Dominik Hendricks RN. Assessment: 16:26 General: Appears in no apparent distress. uncomfortable, Behavior is calm, cooperative, hj appropriate for age. Pain: Pain: Complains of pain in chest. Neuro: Level of Consciousness is awake, alert, obeys commands, Oriented to person, place, time, situation, Appropriate for age. Cardiovascular: Capillary refill < 3 seconds Patient's skin is warm and dry. Respiratory: Airway is patent Respiratory effort is even, unlabored, Respiratory pattern is regular, symmetrical. GI: No signs and/or symptoms were reported involving the gastrointestinal system. : No signs and/or symptoms were reported regarding the genitourinary system. EENT: No signs and/or symptoms were reported regarding the EENT system. Derm: No signs and/or symptoms reported regarding the dermatologic system. Musculoskeletal: No signs and/or symptoms reported regarding the musculoskeletal system. 16:57 Reassessment: Patient and/or family updated on plan of care and expected duration. Pain hj level reassessed. Patient is alert, oriented x 3, equal unlabored respirations, skin warm/dry/pink. awaiting results and POC;. 17:36 Reassessment: Patient and/or family updated on plan of care and expected duration. Pain hj level reassessed. Patient is alert, oriented x 3, equal unlabored respirations, skin warm/dry/pink. family in room;. 18:17 Reassessment: Patient and/or family updated on plan of care and expected duration. Pain hj level reassessed. Patient is alert, oriented x 3, equal unlabored respirations, skin warm/dry/pink. updated pt that he is going to room, 404 after shift change per robot technician;. 18:59 Reassessment: Patient and/or family updated on plan of care and expected duration. Pain hj level reassessed. Patient is alert, oriented x 3, equal unlabored respirations, skin warm/dry/pink. Patient denies pain at this time. Patient states feeling better. 19:23 General: Appears comfortable, Behavior is calm, cooperative, appropriate for age. Pain: fc Complains of pain in all over Quality of pain is described as aching. Neuro: Level of Consciousness is awake, alert, obeys commands, Oriented to person, place, time, situation, Physical Damage Appraiser are weak on right hx of stroke. Speech is normal, Facial symmetry appears normal. Cardiovascular: Capillary refill < 3 seconds. Respiratory: Airway is patent Respiratory effort is even, unlabored, Respiratory pattern is regular, symmetrical, Breath sounds are clear bilaterally. Onset: The symptoms/episode began/occurred gradually, the patient has mild shortness of breath. GI: No signs and/or symptoms were reported involving the gastrointestinal system. : No signs and/or symptoms were reported regarding the genitourinary system. EENT: No signs and/or symptoms were reported regarding the EENT system. Derm: Skin is intact, Skin is dry, Skin is flushed, Skin temperature is hot. Musculoskeletal: No signs and/or symptoms reported regarding the musculoskeletal system. 19:55 Reassessment: Discussed temp with Dena MATTHEWS and pt given Tylenol as ordered. fc Vital Signs: 16:25 BP 110 / 51; Pulse 104; Resp 18; Temp 99.4(O); Pulse Ox 95% on R/A; Weight 79.38 kg; hj Height 6 ft. 0 in. (182.88 cm); Pain 4/10; 16:36 BP 111 / 51; Pulse 100; Resp 18; Pulse Ox 100% on 2 lpm NC; hj 17:37 BP 106 / 49; Pulse 96; Resp 18; Pulse Ox 100% on 2 lpm NC; hj 18:18 BP 110 / 55; Pulse 93; Resp 18; Pulse Ox 99% on 2 lpm NC; hj 19:23 BP 111 / 46; Pulse 86; Resp 22; Temp 101.6(O); Pulse Ox 100% on 2 lpm NC; Pain 2/10; fc 20:07 BP 119 / 60; Pulse 104; Resp 20; Temp 101.4; Pulse Ox 100% ; Pain 2/10; fc 16:25 Body Mass Index 23.73 (79.38 kg, 182.88 cm) ED Course: 16:20 Patient arrived in ED. hj 16:23 Triage completed. hj 16:25 David Fernandes PA is PHCP. cp 16:25 Vijay De La Cruz MD is Attending Physician. cp 16:26 Arm band placed on left wrist. hj 16:26 Patient has correct armband on for positive identification. Placed in gown. Bed in low hj position. Call light in reach. Side rails up X2. 16:35 Dominik Hendricks RN is Primary Nurse. hj 16:50 Initial lab(s) drawn, by ny, sent to lab. First set of blood cultures drawn by ny. hj 16:57 Inserted saline lock: 20 gauge in right forearm, using aseptic technique. Blood collected. 17:05 XRAY Chest (1 view) In Process Unspecified. EDMS 17:[address] via stretcher. eh 17:13 CT completed. Patient tolerated procedure well. Patient moved back from CT. eh 17:14 CT Head Brain wo Cont In Process Unspecified. EDMS 17:55 Ramsey Stanton MD is Hospitalizing Provider. cp 18:06 Influenza Screen (a \T\ B) Sent. hj 19:11 Report given to GRIFFIN Nelson. hj 20:08 No provider procedures requiring assistance completed. Patient admitted, IV remains in fc place. Administered Medications: 17:07 Drug: NS 0.9% 1000 ml Route: IV; Rate: 75 ml/hr; Site: right forearm; hj 18:03 Follow up: IV Status: Infusion continued upon admission hj 17:28 Drug: Aspirin Chewable Tablet 324 mg Route: PO; hj 17:33 Follow up: Response: No adverse reaction hj 17:28 Drug: NS 0.9% 500 ml Route: IV; Rate: bolus; Site: right forearm; hj 17:33 Follow up: IV Status: Completed infusion; IV Intake: 500ml hj 17:49 Drug: Zosyn 3.375 grams Route: IVPB; Infused Over: 60 mins; Site: right forearm; hj 17:59 Follow up: IV Status: Completed infusion hj 18:12 Drug: vancoMYCIN 1 grams Route: IVPB; Infused Over: 2 hrs; Site: left forearm; hj 18:13 Follow up: IV Status: Infusion continued upon admission 19:54 Drug: Tylenol 1000 mg Route: PO; fc 20:10 Follow up: Response: No adverse reaction; No change in condition 19:54 Drug: NS 0.9% 1000 ml Route: IV; Rate: 1 bolus; Site: right forearm; fc 20:11 Follow up: IV Status: Infusion continued upon admission fc Intake: 17:33 IV: 500ml; Total: 500ml. Outcome: 17:56 Decision to Hospitalize by Provider. cp 20:08 Admitted to Tele accompanied by tech, family with patient, via stretcher, room 404, fc with oxygen, with chart, Report called to Jessika MOYA 20:08 Condition: good 20:08 Discharge instructions given to patient, family, Instructed on the need for admit, Demonstrated understanding of instructions. 21:07 Patient left the ED. fc Signatures: Dispatcher [employer] EDMS Cordell Martin Felicia, RN RN Dominik Hendricks RN RN hj Page, Corey, PA PA cp Corrections: (The following items were deleted from the chart) 19:41 19:23 BP 111 / 46; Pulse 86bpm; Resp 22bpm; Pulse Ox 100% 2 lpm Nasal Cannula; Temp fc 98.9F Oral; Pain 2/10; fc 20:14 20:08 Admitted to Tele accompanied by tech, family with patient, via stretcher, room fc 404, with oxygen, with chart, Report called to Aranza spaulding
[2018-06-14] MEDS ORDERED: PIPER/TAZO/NS 3.375gm 3.375 GM/100 ML BAG ONE (17:58)
[2018-06-14] MEDS ORDERED: ONDANSETRON 4 MG/2 ML VIAL IV PRN (19:03)
[2018-06-14] MEDS ORDERED: IPRATROPIUM BROM 0.5MG/2.5ML NEB PRN (19:03)
[2018-06-14] MEDS ORDERED: MAGNESIUM HYDROXIDE 8% 30 ML PO PRN (19:03)
[2018-06-14] MEDS ORDERED: ALBUTEROL 2.5 MG/3 ML NEB SOL NEB PRN (19:03)
[2018-06-14] MEDS ORDERED: ACETAMINOPHEN 500 MG TAB PO PRN (19:03)
[2018-06-14] MEDS ORDERED: ACETAMINOPHEN 500 MG TAB ONE (19:57)
[2018-06-14] MEDS ORDERED: Levofloxacin 750mg IV 750 MG/150 ML BAG IV SCH (20:00)
[2018-06-14] MEDS ORDERED: NA CHLORIDE 0.9% 1,000 ML IV SCH (20:00)
[2018-06-14] MEDS ORDERED: APIXABAN 2.5 MG TABLET PO SCH (21:00)
[2018-06-14] MEDS: APIXABAN 2.5 MG TABLET PO SCH (22:01)
[2018-06-14] MEDS: FENTANYL CITR 100 MCG/2 ML IV PRN (22:01)
[2018-06-15] MEDS: FENTANYL CITR 100 MCG/2 ML IV PRN ×3 (02:52→20:00)
[2018-06-15 06:02] LABS: Absolute Lymphocytes (CBC) 1.1 K/uL (0.7-4.9); Absolute Monocytes 2.4 K/uL (0.1-1.3); Absolute Neutrophil 19.7 K/uL (1.8-8.0); Basophils % 0.4 % (0-1.3); Eosinophils % 0.1 % (0-4.4); Hematocrit 28.9 % (39.6-49.0); Lymphocytes % 4.8 % (15.3-44.8); MCH 30.3 pg (27.0-35.0); MCV 88.4 fL (80-100); MPV 8.6 fL (7.6-11.3); Monocytes % 10.2 % (3.3-12.3); RBC Red Blood Cell Count 3.27 M/uL (4.33-5.43)
[2018-06-15 06:13] LABS: Albumin 2.7 g/dL (3.4-5.0); Bilirubin Total 0.7 mg/dL (0.2-1.0); Potassium 4.3 mmol/L (3.5-5.1); Protein, Total 6.8 g/dL (6.4-8.2)
[2018-06-15] MEDS ORDERED: PANTOPRAZOLE 40MG TABLET PO SCH (06:30)
--- NOTE | 2018-06-15 06:45 | EKG ---
Test Date: 2018-06-14 Test Time: 16:34:08 Repair Table Operator: KIKE MEASUREMENT RESULTS: Intervals: Rate: 98 SC: QRSD: 88 QT: 264 QTc: 337 Thornton: P: SC: QRS: 79 T: 266 INTERPRETIVE STATEMENTS: Atrial fibrillation Septal infarct, age undetermined Marked ST abnormality, possible inferior subendocardial injury Abnormal ECG Compared to ECG 05/29/2018 00:44:28 Myocardial infarct finding now present Possible ischemia no longer present ST (T wave) deviation still present Electronically Signed On 06-15-18 06:44:26 CDT by Ric Toledo
[2018-06-15 07:26] LABS: Blood Morphology Comment NOT SEEN (NOT SEEN); Platelet Estimate ADEQ
[2018-06-15] MEDS: APIXABAN 2.5 MG TABLET PO SCH ×2 (08:38→19:59)
[2018-06-15] MEDS: ASPIRIN EC 81 MG TAB PO SCH (08:58)
[2018-06-15] MEDS ORDERED: DIGOXIN 0.125 MG TABLET PO SCH (09:00)
[2018-06-15] MEDS ORDERED: DILTIAZEM HCL 120 MG SR CAP PO SCH (09:00)
[2018-06-15] MEDS ORDERED: ENOXAPARIN 40 MG/0.4 ML SQ SCH (09:00)
--- NOTE | 2018-06-15 10:46 | P.HP ---
Certification for Inpatient Patient admitted to: Inpatient With expected LOS: >2 Midnights Patient will require the following post-hospital care: None Practitioner: I am a practitioner with admitting privileges, knowledge of patient current condition, hospital course, and medical plan of care. Services: Services provided to patient in accordance with Admission requirements found in Title 42 Section 412.3 of the Code of Federal Regulations Patient History Date of Service: 06/14/18 Reason for admission: Pneumonia with generalized weakness History of Present Illness: Patient is a 73-year-old gentleman who came into the hospital with complaints of fever shakes and chills. Patient also had generalized weakness. In the emergency room his workup revealed that he had a right lower lobe pneumonia. Patient also had acute renal insufficiency along with leukocytosis. He was started on IV antibiotics and given Levaquin & Zosyn. Patient will be admitted and treated for a pneumonic process. Patient denies having cough but he feels congested. He does not have any sputum production. He does appear to be generally weak. Patient will be scheduled with physical therapy as well to assist with ambulation. Patient will need to be admitted of for inpatient stay. Allergies No Known Allergies Allergy (Verified 06/14/18 20:01) Home Medications: Diltiazem Cd [Cardizem Cd*] 120 mg PO DAILY #30 cap 02/03/16 Lisinopril [Zestril] 40 mg PO DAILY #30 tablet 02/03/16 Digoxin [Lanoxin*] 0.125 mg PO DAILY 04/30/16 Aspirin [Aspirin EC 81 MG] 81 mg PO DAILY #90 tablet. 05/04/16 Apixaban [Eliquis] 2.5 mg PO BID 05/29/18 Omeprazole [Prilosec] 40 mg PO DAILY 05/29/18 - Past Medical/Surgical History Has patient received pneumonia vaccine in the past: No Diabetic: No -: CVA- R side weakness 2015 -: atrial fibrilation -: Hypertension -: GI bleed -: Stent in Lt leg -: cardiac stent x2 -: back sx for herniated disk - Family History Father Medical History: GI disease Notes: incarcerated hernia - Social History Smoking Status: Former smoker Alcohol use: No CD- Drugs: No Caffeine use: No Place of Residence: Home Review of Systems 10-point ROS is otherwise unremarkable Physical Examination - Vital Signs Temperature: 97.4 F Blood Pressure: 102/47 Pulse: 94 Respirations: 18 Pulse Ox (%): 99 - Physical Exam General: Alert, In no apparent distress, Oriented x3 HEENT: Atraumatic, PERRLA, Mucous membr. moist/pink, EOMI, Sclerae nonicteric Neck: Supple, 2+ carotid pulse no bruit, No LAD, Without JVD or thyroid abnormality Respiratory: Diminished, Rhonchi/gurgles Cardiovascular: Regular rate/rhythm, Normal S1 S2, No murmurs Gastrointestinal: Normal bowel sounds, Soft and benign, Non-distended, No tenderness Musculoskeletal: No clubbing, No swelling, No tenderness Integumentary: No rashes Neurological: Normal gait, Normal speech, Normal strength at 5/5 x4 extr, Normal tone, Sensation intact, Cranial nerves 3-12 intact, Normal affect Lymphatics: No axilla or inguinal lymphadenopathy - Studies Laboratory Data (last 24 hrs) 06/14/18 16:50: PT 24.5 H, INR 2.06 06/14/18 16:50: WBC 24.2 H*, Hgb 11.0 L, Hct 32.5 L, Plt Count 182 06/14/18 16:50: Sodium 133 L, Potassium 4.5, BUN 25 H, Creatinine 1.40 H, Glucose 100, Magnesium 2.0, Total Bilirubin 0.9, AST 17, ALT 12, Alkaline Phosphatase 65 Microbiology Data (last 24 hrs): 06/14/18 17:55 Nasopharnyx Influenza Type A Antigen Screen - Final 06/14/18 17:55 Nasopharnyx Influenza Type B Antigen Screen - Final Assessment & Plan - Problems (Diagnosis) (1) Right lower lobe pneumonia Current Visit: Yes Status: Acute (2) Postobstructive pneumonia Current Visit: Yes Status: Acute (3) Alcohol abuse Current Visit: No Status: Active (4) Atrial fibrillation Current Visit: No Status: Active (5) Hyperlipidemia Onset Date: 05/01/16 Current Visit: No Status: Acute Qualifiers: (6) History of CVA (cerebrovascular accident) Current Visit: Yes Status: Acute - Plan 1. Continue with IV antibiotics 2. Awaiting sputum and blood culture 3. Repeat chest x-ray 4. Will proceed with CT scan of the chest if pneumonia is not improved to evaluate for postobstructive pneumonia 5. Pulmonary consultation 6. Continue with nebs as needed 7. O2 per protocol 8. Continue with gentle hydration 9. Repeat labs including CBC and renal function in a.m. 10. GI and DVT prophylaxis Discharge Plan: Home Plan to discharge in: Greater than 2 days - Advance Directives Does patient have a Living Will: No Does patient have a Durable POA for Healthcare: No - Code Status/Comfort Care Code Status Assessed: Yes Code Status: Full Code Critical Care: No Time Spent Managing PTS Care (In Minutes): 50
[2018-06-15] MEDS: Levofloxacin500mg IV 500 MG/100 ML BAG IV SCH (11:46)
[2018-06-15] MEDS: PIPER/TAZO/NS 3.375gm 3.375 GM/100 ML BAG IVPB SCH ×2 (11:46→19:59)
[2018-06-15 12:32] LABS: Urine Appearance CLEAR; Urine Bilirubin NEGATIVE (NEG); Urine Blood NEGATIVE (NEG); Urine Color YELLOW; Urine Glucose TRACE (NEG); Urine Protein TRACE (NEG); Urine Specific Gravity >=1.030 (1.005-1.030); Urine Urobilinogen 0.2 mg/dL (0.2-1.0)
[2018-06-15 12:45] LABS: Urine Microscopic Reflex ORDER UMIC
[2018-06-15 13:02] LABS: Urine Bacteria 20-50 /HPF (NONE SEEN)
[2018-06-15 13:03] LABS: Urine Culture Reflex Order REFLEXED
--- NOTE | 2018-06-15 13:26 | P.PN ---
Subjective Date of Service: 06/15/18 Chief Complaint: Pneumonia with generalized weakness feels better today, less chest pain Physical Examination - Vital Signs Temperature: 98 F Blood Pressure: 119/53 Pulse: 102 Respirations: 20 Pulse Ox (%): 98 - Physical Exam General: Alert, In no apparent distress HEENT: Atraumatic, PERRLA, EOMI Neck: Supple, JVD not distended Respiratory: Normal air movement, Crackles/rales Cardiovascular: Regular rate/rhythm, Normal S1 S2 Gastrointestinal: Normal bowel sounds, No tenderness Musculoskeletal: No tenderness Integumentary: No rashes Neurological: Normal speech, Normal tone, Normal affect Lymphatics: No axilla or inguinal lymphadenopathy - Studies Laboratory Data (last 24 hrs) 06/14/18 16:50: PT 24.5 H, INR 2.06 06/14/18 16:50: WBC 24.2 H*, Hgb 11.0 L, Hct 32.5 L, Plt Count 182 06/14/18 16:50: Sodium 133 L, Potassium 4.5, BUN 25 H, Creatinine 1.40 H, Glucose 100, Magnesium 2.0, Total Bilirubin 0.9, AST 17, ALT 12, Alkaline Phosphatase 65 Microbiology Data (last 24 hrs): 06/14/18 17:55 Nasopharnyx Influenza Type A Antigen Screen - Final 06/14/18 17:55 Nasopharnyx Influenza Type B Antigen Screen - Final Medications List Reviewed: Yes Assessment And Plan - Current Problems (Diagnosis) (1) Right lower lobe pneumonia Current Visit: Yes Status: Acute Qualifiers: Pneumonia type: due to unspecified organism Qualified Code(s): J18.1 - Lobar pneumonia, unspecified organism (2) History of CVA (cerebrovascular accident) Current Visit: Yes Status: Chronic (3) Atrial fibrillation Current Visit: Yes Status: Chronic (4) HTN (hypertension) Onset Date: 05/01/16 Current Visit: Yes Status: Chronic Qualifiers: Hypertension type: essential hypertension Qualified Code(s): I10 - Essential (primary) hypertension (5) Hyperlipidemia Onset Date: 05/01/16 Current Visit: Yes Status: Chronic Qualifiers: Hyperlipidemia type: unspecified Qualified Code(s): E78.5 - Hyperlipidemia , unspecified - Plan --Cont Zosyn and Levaqin --CT chest --ECHO
--- NOTE | 2018-06-15 15:12 | RAD REPORT ---
EXAM DESCRIPTION: CT - Thorax W/ Con CLINICAL HISTORY: Chest pain pneumonia/postobstructive mass COMPARISON: Thorax W/ Con dated 05/29/2018 FINDINGS: Diffuse emphysema is present. Small ill-defined area of parenchymal opacity in the medial right upper lobe is again noted, appearing unchanged. Large necrotic masslike consolidation in the ri ght middle lobe is again seen measuring 4.8 x 4.6 cm with surrounding airspace consolidation. Small r ight pleural effusion. No pneumothorax. Mild lymphadenopathy seen in the mediastinum including in the prevascular space measuring 12 mm, prec arinal space measuring 12 right hilar region measuring 12 mm. No lytic or blastic bone lesion. No gross upper abdominal finding. All CT scans are performed using dose optimization technique as appropriate and may include automated exposure control or mA/KV adjustment according to patient size. IMPRESSION: Large necrotic masslike consolidation in the right middle lobe is noted measuring 4.8 x 4.6 cm with surrounding airspace consolidation. Necrotizing/cavitary pneumonia is suspected.The findi ngs appear significantly progressive since the 05/29/2018 study. Mild mediastinal and right hilar adenopathy as detailed. Small right pleural effusion
[2018-06-15] MEDS: TEMAZEPAM 15 MG CAP PO PRN (21:03)
[2018-06-16] MEDS: PIPER/TAZO/NS 3.375gm 3.375 GM/100 ML BAG IVPB SCH ×3 (03:38→20:34)
[2018-06-16] MEDS: ALBUTEROL 2.5 MG/3 ML NEB SOL NEB PRN ×2 (04:09→07:24)
[2018-06-16] MEDS: IPRATROPIUM BROM 0.5MG/2.5ML NEB PRN ×2 (04:09→07:24)
[2018-06-16] MEDS: FENTANYL CITR 100 MCG/2 ML IV PRN ×2 (07:58→20:35)
[2018-06-16] MEDS: APIXABAN 2.5 MG TABLET PO SCH ×2 (07:59→20:35)
[2018-06-16] MEDS: ASPIRIN EC 81 MG TAB PO SCH (07:59)
[2018-06-16] MEDS: Levofloxacin500mg IV 500 MG/100 ML BAG IV SCH (12:31)
--- NOTE | 2018-06-16 12:44 | P.CNS ---
Date of Consult: 06/16/18 Reason for Consult: Pneumonia Chief Complaint: Pneumonia with generalized weakness History of Present Illness: Patient is 73 years of age. He recently had a bronchoscopy done [facility] presumed squamous cell cancer admitted with weakness was found to have worsening infiltrate on the right side he recently had a bronchoscopy done probably developed pro spunky scopic pneumonia mass was biopsied from the right lower lobe superior segment apart from feeling weak he denies any fever chills cough sputum or hemoptysis no chest pain Allergies No Known Allergies Allergy (Verified 06/14/18 20:01) Home Medications: Diltiazem Cd [Cardizem Cd*] 120 mg PO DAILY #30 cap 02/03/16 Lisinopril [Zestril] 40 mg PO DAILY #30 tablet 02/03/16 Digoxin [Lanoxin*] 0.125 mg PO DAILY 04/30/16 Aspirin [Aspirin EC 81 MG] 81 mg PO DAILY #90 tablet. 05/04/16 Apixaban [Eliquis] 2.5 mg PO BID 05/29/18 Omeprazole [Prilosec] 40 mg PO DAILY 05/29/18 - Past Medical/Surgical History Diabetic: No -: CVA- R side weakness 2014 -: atrial fibrilation -: Hypertension -: GI bleed -: Stent in Lt leg -: cardiac stent x2 -: back sx for herniated disk - Family History Father Medical History: GI disease Notes: incarcerated hernia - Social History Smoking Status: Current every day smoker Alcohol use: No CD- Drugs: No Caffeine use: No Place of Residence: Home Review of Systems General: Weakness Respiratory: Cough, Shortness of Breath Physical Examination Temp Pulse Resp BP Pulse Ox 100.8 F 114 H 18 102/53 L 100 06/16/18 12:00 06/16/18 12:00 06/16/18 12:00 06/16/18 12:00 06/16/18 08:00 General: Alert, Oriented x3 HEENT: Atraumatic Neck: Supple Respiratory: Crackles/rales (Crackles on the right side) Cardiovascular: No edema, Normal S1 S2 - Problems (1) Right lower lobe pneumonia Onset Date: 06/16/18 Current Visit: Yes Status: Acute Plan: Patient is 73 years of age status post bronchoscopy for right-sided lung mass diagnosis presumed squamous cell lung cancer doubt that this is TB AFB smears are pending probably develop priya bronchoscopic pneumonia continue with Zosyn Dc levofloxacin patient's kidney function is worse white count elevated patient is on Eliquis patient is slight fever Qualifiers: Pneumonia type: due to unspecified organism Qualified Code(s): J18.1 - Lobar pneumonia, unspecified organism
--- NOTE | 2018-06-16 16:42 | P.PN ---
Subjective Date of Service: 06/16/18 Primary Care Provider: Dr. Escobar(Hospitalist covering) Chief Complaint: Pneumonia with generalized weakness Subjective: Doing well Physical Examination - Vital Signs Temperature: 100.8 F Blood Pressure: 102/53 Pulse: 114 Respirations: 18 Pulse Ox (%): 100 - Physical Exam General: Alert, In no apparent distress, Cooperative HEENT: Atraumatic Neck: Supple Respiratory: Expiratory wheezes Cardiovascular: Irregular heart rate/rhythm Gastrointestinal: Normal bowel sounds, Soft and benign, Non-distended, No masses , No rebound, No guarding Musculoskeletal: No erythema, No tenderness, No warmth Integumentary: No tenderness/swelling, No erythema, No warmth, No cyanosis Neurological: Normal speech, Normal strength at 5/5 x4 extr, Normal tone, Normal affect - Studies Medications List Reviewed: Yes Assessment & Plan Discharge Plan: Home Plan to discharge in: 48 Hours Physician Review Additional Text: Impression: Large necrotic mass like consolidation to the right middle lobe measuring 4.8 x 4.6 cm with surrounding airspace consolidation. Suspect pneumonia versus carcinoma. Recent bronchoscopy Mild mediastinal and right hilar adenopathy with noted right small pleural effusion Hypertension Atrial fibrillation on chronic anti coagulation therapy History of CVA with right-sided weakness Plan: Large necrotic mass like consolidation to the right middle lobe measuring 4.8 x 4.6 cm with surrounding airspace consolidation. Suspect pneumonia versus carcinoma. Recent bronchoscopy: Will place patient in isolation. Will have pulmonology further evaluate. Await further recommendation from pulmonology and plan of care. Await bronchoscopy report. Dr. Escobar to assume care care tomorrow. Mild mediastinal and right hilar adenopathy with noted right small pleural effusion: Continue with pulmonology recommendation Hypertension: Continue with Cardizem. Will hold lisinopril due to blood pressure. Atrial fibrillation on chronic anti coagulation therapy: Continue medication digoxin and Cardizem. Patient also takes Eliquis. History of CVA with right-sided weakness: Continue medication. Time Spent Managing Pts Care (In Minutes): 55
[2018-06-16] MEDS: ACETAMINOPHEN 500 MG TAB PO PRN (17:32)
[2018-06-16] MEDS: TEMAZEPAM 15 MG CAP PO PRN (21:38)
[2018-06-17] MEDS: PIPER/TAZO/NS 3.375gm 3.375 GM/100 ML BAG IVPB SCH ×3 (03:51→20:20)
[2018-06-17 04:39] LABS: Absolute Lymphocytes (CBC) 0.9 K/uL (0.7-4.9); Absolute Monocytes 1.8 K/uL (0.1-1.3); Absolute Neutrophil 15.6 K/uL (1.8-8.0); Basophils % 0.3 % (0-1.3); Eosinophils % 0.4 % (0-4.4); MCH 29.3 pg (27.0-35.0); MCV 87.3 fL (80-100); MPV 8.6 fL (7.6-11.3); Monocytes % 9.7 % (3.3-12.3); RBC Red Blood Cell Count 3.43 M/uL (4.33-5.43)
[2018-06-17] MEDS: IPRATROPIUM BROM 0.5MG/2.5ML NEB PRN ×2 (04:53→21:15)
[2018-06-17] MEDS: ALBUTEROL 2.5 MG/3 ML NEB SOL NEB PRN ×2 (04:53→21:15)
[2018-06-17 04:54] LABS: Albumin 2.3 g/dL (3.4-5.0); Bilirubin Total 0.5 mg/dL (0.2-1.0); Magnesium 2.1 mg/dL (1.8-2.4); Potassium 4.1 mmol/L (3.5-5.1); Protein, Total 6.9 g/dL (6.4-8.2)
[2018-06-17] MEDS: ACETAMINOPHEN 500 MG TAB PO PRN ×2 (05:25→20:23)
[2018-06-17] MEDS: APIXABAN 2.5 MG TABLET PO SCH ×2 (08:50→20:21)
[2018-06-17] MEDS: ASPIRIN EC 81 MG TAB PO SCH (08:50)
--- NOTE | 2018-06-17 09:11 | RAD REPORT ---
EXAM DESCRIPTION: [place] Single View06/17/2018 6:14 am CLINICAL HISTORY: Chest pain COMPARISON: 06/15/2018 FINDINGS: There is equivocal mild decrease in size in the right middle lobe opacity since the prior examination. The left lung appears clear. The heart is normal size A small right pleural effusion is present
--- NOTE | 2018-06-17 12:43 | P.PN ---
Subjective Date of Service: 06/17/18 Primary Care Provider: Dr. Escobar(Hospitalist covering) Chief Complaint: Pneumonia with generalized weakness Subjective: Improving (Patient admitted for post obstructive pneumonia. Was found to have squamous cell on the biopsy.) Review of Systems 10-point ROS is otherwise unremarkable General: Weakness Physical Examination - Vital Signs Temperature: 98.1 F Blood Pressure: 96/52 Pulse: 92 Respirations: 18 Pulse Ox (%): 97 - Physical Exam General: Alert, In no apparent distress HEENT: Atraumatic, PERRLA, EOMI Neck: Supple, JVD not distended Respiratory: Clear to auscultation bilaterally, Normal air movement Cardiovascular: Regular rate/rhythm, Normal S1 S2 Gastrointestinal: Normal bowel sounds, No tenderness Musculoskeletal: No tenderness Integumentary: No rashes Neurological: Normal speech, Normal tone, Normal affect Lymphatics: No axilla or inguinal lymphadenopathy - Studies Medications List Reviewed: Yes Assessment & Plan - Problems (Diagnosis) (1) Squamous cell lung cancer Current Visit: Yes Status: Acute Plan: Have discussed with Dr. Bruce. He had told the patient yesterday. However the patient was not certain. Have spent 20min discussing this with him. He does have a positive biopsy. Treatment will be outpatient. Will refer to Dr. Cabrales and follow up with Dr. Bruce. Qualifiers: Laterality: right Qualified Code(s): C34.91 - Malignant neoplasm of unspecified part of right bronchus or lung (2) Postobstructive pneumonia Onset Date: 06/16/18 Current Visit: Yes Status: Acute Plan: after bronchoscopy. He can go home on augmentin. He has only been to the bathroom during his stay. Will have PT Acess him. If necessary we can get home PT. (3) HTN (hypertension) Onset Date: 05/01/16 Current Visit: Yes Status: Chronic Plan: stable continue current medications Qualifiers: Hypertension type: essential hypertension Qualified Code(s): I10 - Essential (primary) hypertension (4) History of CVA (cerebrovascular accident) Current Visit: Yes Status: Chronic Plan: Jason is at his baseline Discharge Plan: Home Plan to discharge in: 24 Hours - Code Status/Comfort Care Code Status Assessed: Yes Code Status: Full Code Physician Review Additional Text: Impression: Large necrotic mass like consolidation to the right middle lobe measuring 4.8 x 4.6 cm with surrounding airspace consolidation. Suspect pneumonia versus carcinoma. Recent bronchoscopy Mild mediastinal and right hilar adenopathy with noted right small pleural effusion Hypertension Atrial fibrillation on chronic anti coagulation therapy History of CVA with right-sided weakness Plan: Large necrotic mass like consolidation to the right middle lobe measuring 4.8 x 4.6 cm with surrounding airspace consolidation. Suspect pneumonia versus carcinoma. Recent bronchoscopy: Will place patient in isolation. Will have pulmonology further evaluate. Await further recommendation from pulmonology and plan of care. Await bronchoscopy report. Dr. Escobar to assume care care tomorrow. Mild mediastinal and right hilar adenopathy with noted right small pleural effusion: Continue with pulmonology recommendation Hypertension: Continue with Cardizem. Will hold lisinopril due to blood pressure. Atrial fibrillation on chronic anti coagulation therapy: Continue medication digoxin and Cardizem. Patient also takes Eliquis. History of CVA with right-sided weakness: Continue medication. Critical Care: No Time Spent Managing Pts Care (In Minutes): 45
[2018-06-17] MEDS: TEMAZEPAM 15 MG CAP PO PRN (20:21)
[2018-06-18] MEDS: PIPER/TAZO/NS 3.375gm 3.375 GM/100 ML BAG IVPB SCH (04:25)
[2018-06-18 06:31] LABS: Absolute Lymphocytes (CBC) 1.3 K/uL (0.7-4.9); Absolute Monocytes 1.7 K/uL (0.1-1.3); Basophils % 0.5 % (0-1.3); Eosinophils % 0.9 % (0-4.4); Hematocrit 27.6 % (39.6-49.0); Lymphocytes % 8.4 % (15.3-44.8); MCH 29.5 pg (27.0-35.0); MPV 8.6 fL (7.6-11.3); Monocytes % 11.3 % (3.3-12.3); RBC Red Blood Cell Count 3.13 M/uL (4.33-5.43)
[2018-06-18 06:45] LABS: Magnesium 2.4 mg/dL (1.8-2.4); Potassium 4.4 mmol/L (3.5-5.1)
[2018-06-18] MEDS ORDERED: Pharmacy Consult 1 EA XX PRN (08:31)
[2018-06-18] MEDS: ARFORMOTEROL TARTRATE 15 MCG/2 ML VIAL.NEB NEB SCH ×2 (08:32→19:40)
--- NOTE | 2018-06-18 08:36 | P.PN ---
Subjective Date of Service: 06/18/18 Primary Care Provider: Dr. Escobar(Hospitalist covering) Chief Complaint: Pneumonia with generalized weakness There has been no changes feeling worse complaining of more shortness of breath slight chills very weak Review of Systems General: Weakness Respiratory: Cough, Shortness of Breath Physical Examination - Vital Signs Temperature: 97.4 F Blood Pressure: 98/51 Pulse: 119 Respirations: 18 Pulse Ox (%): 95 - Physical Exam General: Alert, Oriented x3 HEENT: Atraumatic Neck: Supple Respiratory: Crackles/rales (On the right side) Cardiovascular: No edema, Irregular heart rate/rhythm - Studies Medications List Reviewed: Yes Assessment & Plan - Problems (Diagnosis) (1) Right lower lobe pneumonia Onset Date: 06/16/18 Current Visit: Yes Status: Acute Plan: Patient is 73 years of age admitted with post bronchoscopic pneumonia recent diagnosis of squamous cell cancer continue with Zosyn and add vancomycin sputum cultures as been complaining of weakness shortness of breath I have also added some brought Wanna hypotensive fluid boluses patient is on diltiazem and lisinopril at home patient's white count is declining serum cortisol level Qualifiers: Pneumonia type: due to unspecified organism Qualified Code(s): J18.1 - Lobar pneumonia, unspecified organism Physician Review Additional Text: Impression: Large necrotic mass like consolidation to the right middle lobe measuring 4.8 x 4.6 cm with surrounding airspace consolidation. Suspect pneumonia versus carcinoma. Recent bronchoscopy Mild mediastinal and right hilar adenopathy with noted right small pleural effusion Hypertension Atrial fibrillation on chronic anti coagulation therapy History of CVA with right-sided weakness Plan: Large necrotic mass like consolidation to the right middle lobe measuring 4.8 x 4.6 cm with surrounding airspace consolidation. Suspect pneumonia versus carcinoma. Recent bronchoscopy: Will place patient in isolation. Will have pulmonology further evaluate. Await further recommendation from pulmonology and plan of care. Await bronchoscopy report. Dr. Escobar to assume care care tomorrow. Mild mediastinal and right hilar adenopathy with noted right small pleural effusion: Continue with pulmonology recommendation Hypertension: Continue with Cardizem. Will hold lisinopril due to blood pressure. Atrial fibrillation on chronic anti coagulation therapy: Continue medication digoxin and Cardizem. Patient also takes Eliquis. History of CVA with right-sided weakness: Continue medication.
[2018-06-18] MEDS: ASPIRIN EC 81 MG TAB PO SCH (08:57)
[2018-06-18] MEDS: APIXABAN 2.5 MG TABLET PO SCH ×2 (08:57→20:22)
[2018-06-18] MEDS ORDERED: PNEUMOCOCCAL VACCINE 0.5 ML IMVAC ONE (09:00)
[2018-06-18] MEDS ORDERED: VANCOMYCIN 1.5 GM in NA CHLORIDE 0.9% 500 ML IVPB SCH (09:00)
[2018-06-18] MEDS: ACETAMINOPHEN 500 MG TAB PO PRN ×2 (09:16→17:05)
[2018-06-18] MEDS: NA CHLORIDE 0.9% 1,000 ML IV SCH ×2 (09:18→20:23)
--- NOTE | 2018-06-18 09:32 | P.PN ---
Subjective Date of Service: 06/18/18 Primary Care Provider: Dr. Escobar(Hospitalist covering) Chief Complaint: Pneumonia with generalized weakness Subjective: No new changes (Patient states he is weak. Only walked approx 100- 200 feet with PT. Spend the rest of the day in bed) Review of Systems 10-point ROS is otherwise unremarkable General: Weakness, Malaise Physical Examination - Vital Signs Temperature: 97.4 F Blood Pressure: 98/51 Pulse: 119 Respirations: 18 Pulse Ox (%): 95 - Physical Exam General: Alert, In no apparent distress HEENT: Atraumatic, PERRLA, EOMI Neck: Supple, JVD not distended Respiratory: Clear to auscultation bilaterally, Normal air movement Cardiovascular: Regular rate/rhythm, Normal S1 S2 Gastrointestinal: Normal bowel sounds, No tenderness Musculoskeletal: No tenderness Integumentary: No rashes Neurological: Normal speech, Normal tone, Normal affect Lymphatics: No axilla or inguinal lymphadenopathy - Studies Medications List Reviewed: Yes Assessment & Plan - Problems (Diagnosis) (1) Squamous cell lung cancer Current Visit: Yes Status: Acute Plan: Have discussed with Dr. Bruce. He had told the patient yesterday. However the patient was not certain. Have spent 20min discussing this with him. He does have a positive biopsy. Treatment will be outpatient. Will refer to Dr. Cabrales and follow up with Dr. Bruce. Qualifiers: Laterality: right Qualified Code(s): C34.91 - Malignant neoplasm of unspecified part of right bronchus or lung (2) Postobstructive pneumonia Onset Date: 06/16/18 Current Visit: Yes Status: Acute Plan: after bronchoscopy. He can go home on augmentin. Will need him to get out of the bed to improve his weakness and low blood pressure. Will have him upto chair tid and work with PT for one more day. (3) HTN (hypertension) Onset Date: 05/01/16 Current Visit: Yes Status: Chronic Plan: stable continue current medications Qualifiers: Hypertension type: essential hypertension Qualified Code(s): I10 - Essential (primary) hypertension (4) History of CVA (cerebrovascular accident) Current Visit: Yes Status: Chronic Plan: Jason is at his baseline Discharge Plan: Home Plan to discharge in: 24 Hours - Code Status/Comfort Care Code Status Assessed: Yes Code Status: Full Code Physician Review Additional Text: Impression: Large necrotic mass like consolidation to the right middle lobe measuring 4.8 x 4.6 cm with surrounding airspace consolidation. Suspect pneumonia versus carcinoma. Recent bronchoscopy Mild mediastinal and right hilar adenopathy with noted right small pleural effusion Hypertension Atrial fibrillation on chronic anti coagulation therapy History of CVA with right-sided weakness Plan: Large necrotic mass like consolidation to the right middle lobe measuring 4.8 x 4.6 cm with surrounding airspace consolidation. Suspect pneumonia versus carcinoma. Recent bronchoscopy: Will place patient in isolation. Will have pulmonology further evaluate. Await further recommendation from pulmonology and plan of care. Await bronchoscopy report. Dr. Escobar to assume care care tomorrow. Mild mediastinal and right hilar adenopathy with noted right small pleural effusion: Continue with pulmonology recommendation Hypertension: Continue with Cardizem. Will hold lisinopril due to blood pressure. Atrial fibrillation on chronic anti coagulation therapy: Continue medication digoxin and Cardizem. Patient also takes Eliquis. History of CVA with right-sided weakness: Continue medication. Critical Care: No Time Spent Managing Pts Care (In Minutes): 30
[2018-06-18] MEDS: ALBUTEROL 2.5 MG/3 ML NEB SOL NEB PRN ×2 (16:40→19:40)
[2018-06-18] MEDS: IPRATROPIUM BROM 0.5MG/2.5ML NEB PRN ×2 (16:40→19:40)
[2018-06-18] MEDS: AMOX/K CLAV 875 MG TAB PO SCH (20:21)
[2018-06-18] MEDS: ESZOPICLONE 1 MG TAB PO PRN (20:22)
[2018-06-18] MEDS: BENZONATATE 100 MG CAP PO PRN (23:06)
[2018-06-18] MEDS: FENTANYL CITR 100 MCG/2 ML IV PRN (23:15)
[2018-06-19] MEDS: NA CHLORIDE 0.9% 1,000 ML IV SCH ×4 (05:10→23:37)
[2018-06-19] MEDS: FENTANYL CITR 100 MCG/2 ML IV PRN ×2 (05:14→20:50)
[2018-06-19 06:10] LABS: Absolute Lymphocytes (CBC) 1.3 K/uL (0.7-4.9); Absolute Monocytes 2.1 K/uL (0.1-1.3); Absolute Neutrophil 12.9 K/uL (1.8-8.0); Basophils % 0.4 % (0-1.3); Hematocrit 26.1 % (39.6-49.0); Lymphocytes % 8.1 % (15.3-44.8); MCH 30.1 pg (27.0-35.0); MCV 87.1 fL (80-100); MPV 8.3 fL (7.6-11.3); Monocytes % 12.6 % (3.3-12.3); RBC Red Blood Cell Count 2.99 M/uL (4.33-5.43)
[2018-06-19 07:07] LABS: Potassium 3.8 mmol/L (3.5-5.1)
[2018-06-19] MEDS: ARFORMOTEROL TARTRATE 15 MCG/2 ML VIAL.NEB NEB SCH ×2 (08:30→20:10)
[2018-06-19] MEDS: IPRATROPIUM BROM 0.5MG/2.5ML NEB PRN ×3 (08:30→20:10)
[2018-06-19] MEDS: AMOX/K CLAV 875 MG TAB PO SCH ×2 (09:42→20:54)
[2018-06-19] MEDS: DOXYCYCLINE 100 MG CAP PO SCH ×2 (09:42→20:54)
[2018-06-19] MEDS: APIXABAN 2.5 MG TABLET PO SCH ×2 (09:42→20:54)
[2018-06-19] MEDS: BENZONATATE 100 MG CAP PO PRN (09:42)
[2018-06-19] MEDS: ASPIRIN EC 81 MG TAB PO SCH (09:42)
--- NOTE | 2018-06-19 13:19 | P.PN ---
Subjective Date of Service: 06/19/18 Primary Care Provider: Dr. Escobar(Hospitalist covering) Chief Complaint: Pneumonia with generalized weakness Subjective: No new changes Review of Systems 10-point ROS is otherwise unremarkable General: Weakness Physical Examination - Vital Signs Temperature: 99.6 F Blood Pressure: 128/61 Pulse: 58 Respirations: 24 Pulse Ox (%): 95 - Physical Exam General: Alert, In no apparent distress HEENT: Atraumatic, PERRLA, EOMI Neck: Supple, JVD not distended Respiratory: Clear to auscultation bilaterally, Normal air movement Cardiovascular: Regular rate/rhythm, Normal S1 S2 Gastrointestinal: Normal bowel sounds, No tenderness Musculoskeletal: No tenderness, Other (Patient needs a lot of help sitting up.) Integumentary: No rashes Neurological: Normal speech, Normal tone, Normal affect Lymphatics: No axilla or inguinal lymphadenopathy - Studies Medications List Reviewed: Yes Assessment & Plan - Problems (Diagnosis) (1) Squamous cell lung cancer Current Visit: Yes Status: Acute Plan: Meet with patient and spouse. He is very weak. Will try to get him to snf. He has a lot of complaints. One is the weakness he had in his hand since . Wonders what causing this. States he wants these problems treated first. Have spent 30min discussing with him the need to get treatment. Voiced his concerns that he has seen people suffer with lung cancer and not have good results. I have told him the treatment is getting better he should meet with oncololgy and discuss his options before making a judgement. Will try to get him to snf if possible today. Qualifiers: Laterality: right Qualified Code(s): C34.91 - Malignant neoplasm of unspecified part of right bronchus or lung (2) Postobstructive pneumonia Onset Date: 06/16/18 Current Visit: Yes Status: Acute Plan: after bronchoscopy. He can go home on augmentin. Will need him to get out of the bed to improve his weakness and low blood pressure. Will have him upto chair tid and work with PT for one more day. (3) HTN (hypertension) Onset Date: 05/01/16 Current Visit: Yes Status: Chronic Plan: stable continue current medications Qualifiers: Hypertension type: essential hypertension Qualified Code(s): I10 - Essential (primary) hypertension (4) History of CVA (cerebrovascular accident) Current Visit: Yes Status: Chronic Plan: Jason is at his baseline Discharge Plan: Other (snf) - Code Status/Comfort Care Code Status Assessed: Yes Code Status: Full Code Physician Review Additional Text: Impression: Large necrotic mass like consolidation to the right middle lobe measuring 4.8 x 4.6 cm with surrounding airspace consolidation. Suspect pneumonia versus carcinoma. Recent bronchoscopy Mild mediastinal and right hilar adenopathy with noted right small pleural effusion Hypertension Atrial fibrillation on chronic anti coagulation therapy History of CVA with right-sided weakness Plan: Large necrotic mass like consolidation to the right middle lobe measuring 4.8 x 4.6 cm with surrounding airspace consolidation. Suspect pneumonia versus carcinoma. Recent bronchoscopy: Will place patient in isolation. Will have pulmonology further evaluate. Await further recommendation from pulmonology and plan of care. Await bronchoscopy report. Dr. Escobar to assume care care tomorrow. Mild mediastinal and right hilar adenopathy with noted right small pleural effusion: Continue with pulmonology recommendation Hypertension: Continue with Cardizem. Will hold lisinopril due to blood pressure. Atrial fibrillation on chronic anti coagulation therapy: Continue medication digoxin and Cardizem. Patient also takes Eliquis. History of CVA with right-sided weakness: Continue medication. Critical Care: No Time Spent Managing Pts Care (In Minutes): 40
--- NOTE | 2018-06-19 14:47 | RAD REPORT ---
EXAM DESCRIPTION: MRI - Brain W/Wo Cont - 06/19/2018 2:38 pm CLINICAL HISTORY: Lung carcinoma COMPARISON: Head Brain Wo Cont dated 06/14/2018 TECHNIQUE: Multi-sequence, multiplanar MR imaging of the brain was performed with contrast. FINDINGS: No intracranial hemorrhage, hydrocephalus, extra-axial fluid collection or acute infarctio n.Moderate confluent T2/FLAIR hyperintensity in the periventricular and deep white matter is present compatible with chronic microvascular ischemic changes. Findings are somewhat asymmetric and greater on the right particularly in the right periatrial white matter. No edema or shift of midline structur es. No intracranial mass. DWI is negative for acute CVA. The midline structures are normally formed. Right anterior ethmoid and frontal sinus opacification. Post-contrast images show no abnormal enhancement to suggest tumor or infection. No pathologic enhanc ement to suggest intracranial metastasis. IMPRESSION: No evidence of intracranial metastatic disease. Right frontoethmoidal chronic sinusitis.
[2018-06-19] MEDS: ALBUTEROL 2.5 MG/3 ML NEB SOL NEB PRN (15:30)
--- NOTE | 2018-06-19 15:57 | P.CNS ---
Date of Consult: 06/19/18 (Hematology/Oncology) Pt seen today for a discussion at 3 pm. Patient has been getting evaluation for a right lung mass by Pulmonary. He had a bronchoscopy and biopsy reports cells suspicious for squamous cell carcinoma. Patient is currently admitted for management of pneumonia. When seen today, he had just come back after MRI brain. Appears to be in mild respiratory distress and on O2 by NC. He reports being comfortable with O2 supplementation. He seemed not quite receptive for a comprehensive evaluation and discussion today. His main concern was about the pneumonia at this time. I did give him a brief synopsis of the work up he needs for confirming the disease and also appropriate staging before any treatment suggestions can be made. We discussed about treatment strategies based on disease stage. He wishes to get better from the pneumonia and follow up outpatient with Oncology for further discussion and work up. He does understand that work up needs to be done as soon as possible to avoid any further delay in formulating a treatment scenario for him. He will follow up with his pcp Dr Escobar and Dr Mclain and get referred to Oncology as outpatient for further evaluation, possible repeat biopsy, complete staging and a comprehensive discussion. Please refer for outpatient oncology consultation.
[2018-06-19] MEDS: ACETAMINOPHEN 500 MG TAB PO PRN (20:53)
[2018-06-19] MEDS: ESZOPICLONE 1 MG TAB PO PRN (21:03)
[2018-06-20 07:39] LABS: Absolute Lymphocytes (CBC) 1.2 K/uL (0.7-4.9); Absolute Monocytes 1.7 K/uL (0.1-1.3); Absolute Neutrophil 11.7 K/uL (1.8-8.0); Basophils % 1.2 % (0-1.3); Eosinophils % 1.4 % (0-4.4); Hematocrit 29.3 % (39.6-49.0); Lymphocytes % 8.1 % (15.3-44.8); MCH 29.2 pg (27.0-35.0); MCV 87.8 fL (80-100); Monocytes % 11.5 % (3.3-12.3); RBC Red Blood Cell Count 3.34 M/uL (4.33-5.43)
[2018-06-20 08:09] LABS: Potassium 3.8 mmol/L (3.5-5.1)
[2018-06-20] MEDS: ARFORMOTEROL TARTRATE 15 MCG/2 ML VIAL.NEB NEB SCH ×2 (08:10→20:16)
[2018-06-20] MEDS ORDERED: TRAMADOL HCL 50 MG TAB PO PRN (09:05)
[2018-06-20] MEDS ORDERED: LACTULOSE 20 GM/30 ML UCUP PO PRN (09:06)
[2018-06-20] MEDS: NA CHLORIDE 0.9% 1,000 ML IV SCH ×2 (09:32→11:00)
[2018-06-20] MEDS: AMOX/K CLAV 875 MG TAB PO SCH ×2 (09:35→21:18)
[2018-06-20] MEDS: ASPIRIN EC 81 MG TAB PO SCH (09:35)
[2018-06-20] MEDS: APIXABAN 2.5 MG TABLET PO SCH ×2 (09:35→21:18)
[2018-06-20] MEDS: DOXYCYCLINE 100 MG CAP PO SCH ×2 (09:36→21:19)
[2018-06-20] MEDS: FENTANYL CITR 100 MCG/2 ML IV PRN (09:36)
[2018-06-20] MEDS ORDERED: PNEUMOCOCCAL VACCINE 0.5 ML IMVAC ONE (12:00)
[2018-06-20] MEDS: HYDROCODONE/APAP 7.5/325 MG TAB PO PRN (17:01)
--- NOTE | 2018-06-20 17:10 | P.PN ---
Subjective Date of Service: 06/20/18 Primary Care Provider: Dr. Escobar(Hospitalist covering) Chief Complaint: Pneumonia with generalized weakness Subjective: Doing well Physical Examination - Vital Signs Temperature: 98.9 F Blood Pressure: 127/62 Pulse: 114 Respirations: 18 Pulse Ox (%): 97 - Physical Exam General: Alert, In no apparent distress, Cooperative HEENT: Atraumatic Neck: Supple Respiratory: Expiratory wheezes Cardiovascular: Irregular heart rate/rhythm (a fib. ) Gastrointestinal: Normal bowel sounds, Soft and benign, Non-distended, No masses , No rebound, No guarding Musculoskeletal: No erythema, No tenderness, No warmth Integumentary: No tenderness/swelling, No erythema, No warmth, No cyanosis Neurological: Normal speech, Normal strength at 5/5 x4 extr, Normal tone - Studies Microbiology Data (last 24 hrs): 06/14/18 17:05 Blood - Blood Aerobic Blood Culture - Final No growth in 5 days. 06/14/18 17:05 Blood - Blood Anaerobic Blood Culture - Final No growth in 5 days. 06/14/18 16:50 Blood - Blood Aerobic Blood Culture - Final No growth in 5 days. 06/14/18 16:50 Blood - Blood Anaerobic Blood Culture - Final No growth in 5 days. Medications List Reviewed: Yes Assessment & Plan Discharge Plan: Other (SNF) Plan to discharge in: 24 Hours Physician Review Additional Text: Impression: Large necrotic mass like consolidation to the right middle lobe measuring 4.8 x 4.6 cm with surrounding airspace consolidation. Suspect postobstructive pneumonia. Recent bronchoscopy/Biopsy shows Squamous cell carcinoma. Sputum culture-Citrobacter Mild mediastinal and right hilar adenopathy with noted right small pleural effusion Hypertension Atrial fibrillation on chronic anti coagulation therapy History of CVA with right-sided weakness History of alcohol abuse Anemia Plan: Large necrotic mass like consolidation to the right middle lobe measuring 4.8 x 4.6 cm with surrounding airspace consolidation. Suspect postobstructive pneumonia. Recent bronchoscopy/Biopsy shows Squamous cell carcinoma. Sputum culture-Citrobacter: Spoke to Pulmonary. Patient on Augmentin 875 mg BID and Doxycycline 100 mg BID. He will continue with antibiotics for a total of 10 days. Patient to oncology. Patient will need to be reassessed after discharge. Patient will likely require staging and discuss plan of care for possible treatment. This was discussed in detail with patient and family. Patient is considering to have this addressed up in [facility]. Mild mediastinal and right hilar adenopathy with noted right small pleural effusion: Continue with pulmonology recommendation Hypertension: Continue with Cardizem and Digoxin. Will hold lisinopril due to blood pressure. Atrial fibrillation on chronic anti coagulation therapy: Continue medication digoxin and Cardizem. Continue with Eliquis. History of CVA with right-sided weakness: Continue medication. Stable. History of alcohol abuse: Will monitor closely Anemia: Will check iron and B12 studies. Overall stable. Will monitor closely. Patient awaiting to go to SNF tomorrow. Time Spent Managing Pts Care (In Minutes): 55
[2018-06-20] MEDS: DILTIAZEM HCL 120 MG SR CAP PO SCH (17:27)
[2018-06-20] MEDS: DIGOXIN 0.125 MG TABLET PO SCH (17:28)
[2018-06-20] MEDS: ESZOPICLONE 1 MG TAB PO PRN (21:19)
[2018-06-21 04:07] VITALS: O2SAT 97
[2018-06-21] MEDS: HYDROCODONE/APAP 7.5/325 MG TAB PO PRN (05:45)
[2018-06-21 06:39] LABS: Absolute Lymphocytes (CBC) 1.6 K/uL (0.7-4.9); Absolute Monocytes 2.1 K/uL (0.1-1.3); Absolute Neutrophil 11.2 K/uL (1.8-8.0); Basophils % 0.6 % (0-1.3); Eosinophils % 1.6 % (0-4.4); Lymphocytes % 10.3 % (15.3-44.8); MCH 29.9 pg (27.0-35.0); MCV 88.5 fL (80-100); MPV 7.8 fL (7.6-11.3); Monocytes % 13.8 % (3.3-12.3); RBC Red Blood Cell Count 3.17 M/uL (4.33-5.43)
[2018-06-21 06:44] LABS: Magnesium 1.9 mg/dL (1.8-2.4); Potassium 3.8 mmol/L (3.5-5.1)
[2018-06-21 06:53] VITALS: BMI 23.1
[2018-06-21] MEDS ORDERED: INFLUENZA VACCINE (for 3y+) 0.5 ML DOSE IMVAC ONE (08:00)
[2018-06-21] MEDS: ARFORMOTEROL TARTRATE 15 MCG/2 ML VIAL.NEB NEB SCH (08:00)
--- NOTE | 2018-06-21 08:31 | P.DS ---
Admission Date: 06/14/18 Discharge Date: 06/21/18 Primary Care Provider: Dr. Escobar(Hospitalist covering) Disposition: TRANSFER TO SNF - MEDICAL Discharge Condition: GOOD Reason for Admission: Pneumonia with generalized weakness Consultations: Pulmonary-Dr. Mclain Oncology-Dr. Mcclain Procedures: CT scan: COMPARISON: Thorax W/ Con dated 05/29/2018 FINDINGS: Diffuse emphysema is present. Small ill-defined area of parenchymal opacity in the medial right upper lobe is again noted, appearing unchanged. Large necrotic masslike consolidation in the right middle lobe is again seen measuring 4.8 x 4.6 cm with surrounding airspace consolidation. Small right pleural effusion. No pneumothorax. Mild lymphadenopathy seen in the mediastinum including in the prevascular space measuring 12 mm, precarinal space measuring 12 right hilar region measuring 12 mm. No lytic or blastic bone lesion. No gross upper abdominal finding. All CT scans are performed using dose optimization technique as appropriate and may include automated exposure control or mA/KV adjustment according to patient size. IMPRESSION: Large necrotic masslike consolidation in the right middle lobe is noted measuring 4.8 x 4.6 cm with surrounding airspace consolidation. Necrotizing/cavitary pneumonia is suspected.The findings appear significantly progressive since the 05/29/2018 study. Mild mediastinal and right hilar adenopathy as detailed. Small right pleural effusion MRI Brain: COMPARISON: Head Brain Wo Cont dated 06/14/2018 TECHNIQUE: Multi-sequence, multiplanar MR imaging of the brain was performed with contrast. FINDINGS: No intracranial hemorrhage, hydrocephalus, extra-axial fluid collection or acute infarction.Moderate confluent T2/FLAIR hyperintensity in the periventricular and deep white matter is present compatible with chronic microvascular ischemic changes. Findings are somewhat asymmetric and greater on the right particularly in the right periatrial white matter. No edema or shift of midline structures. No intracranial mass. DWI is negative for acute CVA. The midline structures are normally formed. Right anterior ethmoid and frontal sinus opacification. Post-contrast images show no abnormal enhancement to suggest tumor or infection. No pathologic enhancement to suggest intracranial metastasis. IMPRESSION: No evidence of intracranial metastatic disease. Right frontoethmoidal chronic sinusitis. CXR: COMPARISON: 06/15/2018 FINDINGS: There is equivocal mild decrease in size in the right middle lobe opacity since the prior examination. The left lung appears clear. The heart is normal size A small right pleural effusion is present Medical problem list: Fever, chills and Shortness of breath secondary to Large necrotic mass like consolidation to the right middle lobe measuring 4.8 x 4.6 cm with surrounding airspace consolidation likely postobstructive pneumonia. Recent bronchoscopy/ Biopsy shows Squamous cell carcinoma. Sputum culture-Citrobacter. Mild mediastinal and right hilar adenopathy with noted right small pleural effusion Hypertension Atrial fibrillation on chronic anti coagulation therapy History of CVA with right-sided weakness History of alcohol abuse GERD Constipation Anemia likely of chronic disease Brief History of Present Illness: 73-year-old male present emergency room with fever, chills and shortness of breath. Patient found to have pneumonia to the right middle lobe. CT scan abnormal for large necrotic mass like consolidation in the right middle lobe measuring 4.8 x 4.6 cm with surrounding airspace consolidation. This was significantly progressive since 05/29/2018 study. Mild mediastinal and right hilar adenopathy was noted along with small pleural effusion on the right side. Patient had a recent bronchoscopy as an outpatient. Patient admitted for treatment. Hospital Course: Patient presented with fever, chills and shortness of breath. Patient found to have large necrotic like consolidation to the right middle lobe measuring 4.8 x 4.6 cm with surrounding airspace consolidation. This had been followed up as an outpatient. CT scan showed progression. Post destructive pneumonia was suspected. Patient had a recent bronchoscopy with biopsy showing squamous cell lung carcinoma. The patient was admitted for treatment. Sputum cultures were positive for Citrobacter. Blood cultures negative. Patient seen and treated by pulmonology. Patient was transitioned to oral medication. Chest x-ray showed improvement of the pneumonia. Patient was also seen by oncology due to the diagnosis of squamous cell lung carcinoma. Patient will need to be further evaluated as an outpatient. Patient evaluated for skilled placement. Patient will be discharged to skilled placement to increase his strength. Patient continues to be on oxygen. He is to continue with oxygen to maintain sats above 90%. At discharge he will continue with Brovana 1 unit dose twice daily, albuterol 1 unit dose 3 times a day as needed for shortness of breath and Atrovent 1 unit dose 3 times a day as needed for shortness of breath. At discharge he will also continue with Augmentin 875 mg 1 pill twice daily and doxycycline 100 mg 1 pill twice daily for total 9 more days. Recommendation is to recheck chest x-ray after that time to monitor resolution. Patient will need to follow up with pulmonology and oncology as an outpatient. Patient will need a follow up with oncology for staging and discussion for plan of care and treatment. Patient is considering to get his care up in [place] for this. Patient will need to follow up with pulmonology to further manage. At discharge tramadol 50 mg 1 pill 3 times a day as needed for pain will be provided. Tessalon Perles 200 mg 1 pill 3 times a day as needed for cough will also be provided. Patient will need to follow up with his PCP-Dr. Escobar then 1 week to follow up this hospitalization per Patient with mild mediastinal and right hilar adenopathy with noted right pleural effusion. Continue with above plan of care. Recommendation to recheck chest x-ray in 2-4 weeks to monitor resolution. MRI brain shows no metastasis. Patient has hypertension. Medication adjusted during his stay. Patient will continue with Cardizem 120 mg daily and digoxin 0.125 mg daily. Lisinopril has been discontinued. Recommendation is to maintain blood pressures less 150/80. Further adjustment can be done by his PCP. Patient has atrial fibrillation on chronic anti coagulation therapy. Patient will continue with his rate control medications including digoxin 0.25 mg daily and Cardizem 120 mg daily. Patient also takes chronic anti coagulation therapy- Eliquis 2.5 mg 1 pill twice daily. Patient may follow up with cardiology as an outpatient to further monitor. Patient with anemia likely of chronic disease. Recommendation to recheck lab in 1 week to monitor his progress this includes CBC, iron and B12 studies. Patient with history of CVA with right-sided weakness. Will continue with aspirin 81 mg daily. Patient continue with rehabilitation at skilled facility. Patient may follow up with neurology as an outpatient to further monitor and address. Patient has GERD. Patient continue with Prilosec daily. At discharge docusate 100 mg daily will be provided for stool softener. Vital Signs/Physical Exam: Temp Pulse Resp BP Pulse Ox 99.0 F 87 18 93/54 L 90 L 06/21/18 08:00 06/21/18 08:00 06/21/18 08:00 06/21/18 08:00 06/21/18 08:00 General: Alert, In no apparent distress, Oriented x3, Cooperative HEENT: Atraumatic Neck: Supple Respiratory: Crackles/rales (To the right side) Cardiovascular: Irregular heart rate/rhythm (Atrial fibrillation rate controlled ) Gastrointestinal: Normal bowel sounds, Soft and benign, Non-distended, No tenderness, No masses, No rebound, No guarding Musculoskeletal: No erythema, No tenderness, No warmth Integumentary: No tenderness/swelling, No erythema, No warmth, No cyanosis Neurological: Normal speech, Normal tone Laboratory Data at Discharge: WBC 15.2 K/uL (4.3-10.9) H 06/21/18 06:00 Hgb 9.5 g/dL (13.6-17.9) L 06/21/18 06:00 Hct 28.0 % (39.6-49.0) L 06/21/18 06:00 Plt Count 236 K/uL (152-406) 06/21/18 06:00 PT 24.5 SECONDS (9.5-12.5) H 06/14/18 16:50 INR 2.06 06/14/18 16:50 Sodium 135 mmol/L (136-145) L 06/21/18 06:00 Potassium 3.8 mmol/L (3.5-5.1) 06/21/18 06:00 BUN 13 mg/dL (7-18) 06/21/18 06:00 Creatinine 0.90 mg/dL (0.55-1.3) 06/21/18 06:00 Glucose 106 mg/dL (74-106) 06/21/18 06:00 Magnesium 1.9 mg/dL (1.8-2.4) 06/21/18 06:00 Total Bilirubin 0.5 mg/dL (0.2-1.0) 06/17/18 04:13 AST 17 U/L (15-37) 06/17/18 04:13 ALT 14 U/L (12-78) 06/17/18 04:13 Alkaline Phosphatase 77 U/L (45-117) 06/17/18 04:13 Home Medications: Diltiazem Cd [Cardizem Cd*] 120 mg PO DAILY #30 cap 02/03/16 Digoxin [Lanoxin*] 0.125 mg PO DAILY 04/30/16 Aspirin [Aspirin EC 81 MG] 81 mg PO DAILY #90 tablet. 08/19/16 Apixaban [Eliquis *] 2.5 mg PO BID 05/29/18 Omeprazole [Prilosec] 40 mg PO DAILY 05/29/18 Albuterol Neb [Proventil 0.083% Neb Soln] 2.5 mg NEB TID PRN #90 amp 06/21/18 Amox/Clavulanate [Augmentin 875-125 Tab*] 875 mg PO BID #18 tab 06/21/18 Arformoterol Tartrate [Brovana] 15 mcg NEB BIDRESP #60 vial.neb 06/21/18 Benzonatate [Tessalon Perle*] 200 mg PO TID PRN #30 cap 06/21/18 Docusate [Colace Cap*] 100 mg PO DAILY #30 cap 06/21/18 Doxycycline Hyclate 100 mg PO BID #18 tablet 06/21/18 Ipratropium Neb [Atrovent*] 0.5 mg NEB TID PRN #90 amp 06/21/18 traMADol HCL [Ultram*] 50 mg PO TID PRN #30 tab 06/21/18 New Medications: Albuterol Neb [Proventil 0.083% Neb Soln] 2.5 mg NEB TID PRN #90 amp PRN Reason: Shortness Of Breath Amox/Clavulanate [Augmentin 875-125 Tab*] 875 mg PO BID #18 tab Arformoterol Tartrate [Brovana] 15 mcg NEB BIDRESP #60 vial.neb Benzonatate [Tessalon Perle*] 200 mg PO TID PRN #30 cap PRN Reason: Cough Docusate [Colace Cap*] 100 mg PO DAILY #30 cap Doxycycline Hyclate 100 mg PO BID #18 tablet Ipratropium Neb [Atrovent*] 0.5 mg NEB TID PRN #90 amp PRN Reason: Shortness Of Breath traMADol HCL [Ultram*] 50 mg PO TID PRN #30 tab PRN Reason: Pain Mild Patient Discharge Instructions: 1. Patient be transferred to skilled facility to continue rehabilitation. Patient will need to follow up with his PCP-Dr. Escobar within one week. 2. Patient presented with fever, chills and shortness of breath. Patient found to have large necrotic like consolidation to the right middle lobe measuring 4.8 x 4.6 cm with surrounding airspace consolidation. This had been followed up as an outpatient. CT scan showed progression. Post destructive pneumonia was suspected. Patient had a recent bronchoscopy with biopsy showing squamous cell lung carcinoma. The patient was admitted for treatment. Sputum cultures were positive for Citrobacter. Blood cultures negative. Patient seen and treated by pulmonology. Patient was transitioned to oral medication. Chest x-ray showed improvement of the pneumonia. Patient was also seen by oncology due to the diagnosis of squamous cell lung carcinoma. Patient will need to be further evaluated as an outpatient. Patient evaluated for skilled placement. Patient will be discharged to skilled placement to increase his strength. Patient continues to be on oxygen. He is to continue with oxygen to maintain sats above 90%. At discharge he will continue with Brovana 1 unit dose twice daily, albuterol 1 unit dose 3 times a day as needed for shortness of breath and Atrovent 1 unit dose 3 times a day as needed for shortness of breath. At discharge he will also continue with Augmentin 875 mg 1 pill twice daily and doxycycline 100 mg 1 pill twice daily for total 9 more days. Recommendation is to recheck chest x- ray after that time to monitor resolution. Patient will need to follow up with pulmonology and oncology as an outpatient. Patient will need a follow up with oncology for staging and discussion for plan of care and treatment. Patient is considering to get his care up in [place] for this. Patient will need to follow up with pulmonology to further manage. At discharge tramadol 50 mg 1 pill 3 times a day as needed for pain will be provided. Tessalon Perles 200 mg 1 pill 3 times a day as needed for cough will also be provided. 3. Patient with mild mediastinal and right hilar adenopathy with noted right pleural effusion. Continue with above plan of care. Recommendation to recheck chest x- ray in 2-4 weeks to monitor resolution. MRI brain shows no metastasis. 4. Patient has hypertension. Medication adjusted during his stay. Patient will continue with Cardizem 120 mg daily and digoxin 0.125 mg daily. Lisinopril has been discontinued. Recommendation is to maintain blood pressures less 150/80. Further adjustment can be done by his PCP. 5. Patient has atrial fibrillation on chronic anti coagulation therapy. Patient will continue with his rate control medications including digoxin 0.25 mg daily and Cardizem 120 mg daily. Patient also takes chronic anti coagulation therapy-Eliquis 2.5 mg 1 pill twice daily. Patient may follow up with cardiology as an outpatient to further monitor. 6. Patient with anemia likely of chronic disease. Recommendation to recheck lab in 1 week to monitor his progress this includes CBC, iron and B12 studies. 7. Patient with history of CVA with right-sided weakness. Will continue with aspirin 81 mg daily. Patient continue with rehabilitation at skilled facility. Patient may follow up with neurology as an outpatient to further monitor and address. 8. Patient has GERD. Patient continue with Prilosec daily. 9. At discharge docusate 100 mg daily will be provided for stool softener. Diet: AHA Activity: Fall precautions Time spent managing pt's care (in minutes): 55
[2018-06-21] MEDS ORDERED: DOCUSATE NA 100 MG CAP PO SCH (09:00)
[2018-06-21] MEDS: DILTIAZEM HCL 120 MG SR CAP PO SCH (09:44)
[2018-06-21] MEDS: APIXABAN 2.5 MG TABLET PO SCH (09:45)
[2018-06-21] MEDS: AMOX/K CLAV 875 MG TAB PO SCH (09:45)
[2018-06-21] MEDS: ASPIRIN EC 81 MG TAB PO SCH (09:45)
[2018-06-21] MEDS: DIGOXIN 0.125 MG TABLET PO SCH (09:48)
[2018-06-21] MEDS: DOXYCYCLINE 100 MG CAP PO SCH (09:48)
[2018-06-21 12:06] VITALS: BP 126/58; TEMP 98.1
== END 2018-06-21 11:41 | DRG 871 ==
LOC: ER 16:16 → ERHOLD 18:03 → 4TH 20:16
PROVIDERS: ADMIT Internal Medicine; ATTEND Family Medicine
DX: A41.9 Sepsis, unspecified organism (principal); J18.9 Pneumonia, unspecified organism; C34.90 Malignant neoplasm of unspecified part of unspecified bronchus or lung; J90 Pleural effusion, not elsewhere classified; I48.91 Unspecified atrial fibrillation; I10 Essential (primary) hypertension; E78.5 Hyperlipidemia, unspecified; F10.10 Alcohol abuse, uncomplicated; K21.9 Gastro-esophageal reflux disease without esophagitis; D63.8 Anemia in other chronic diseases classified elsewhere; Z87.891 Personal history of nicotine dependence; Z86.73 Personal history of transient ischemic attack (TIA), and cerebral infarction without residual deficits; Z28.21 Immunization not carried out because of patient refusal
CPT/HCPCS: 36415; 70450; 70553; 71045; 71260; 80048; 80053; 80076; 81003; 81015; 82533; 82962; 83605; 83735; 83880; 84145; 84484; 85025; 85610; 87040; 87086; 87088; 87804; 93005; 94640; 94760; 97163; 99285; A9577; J2543; J3010; J3370; J7030; J7605; Q9967